=== PATIENT | male | born 1945 | race Caucasian/White ===

== ENCOUNTER 2017-08-09 17:00 | Inpatient (IN) | payer MEDICARE, OTHER ==
[~2017-08-09] VITALS: Ht 182.9 cm; Wt 85.6 kg
[2017-08-09 17:12] VITALS: BP 172/104; PULSE 100; RESP 16; TEMP 98.1; O2SAT 98
[2017-08-09 17:15] VITALS: BP 172/104; PULSE 95; RESP 16; O2SAT 98
--- NOTE | 2017-08-09 17:17 | PD ---
HPI Chief Complaint: ams Time Seen by Provider: 17:19 Travel History International Travel<30 days: No Contact w/Intl Traveler<30days: No Traveled to known affect area: No History of Present Illness HPI brought in by ems as an ex parte patient. 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 chart /rn notes reviewed unable to obtain pmhx /pshx from patient due to his level of confusion PFSH Social History Tobacco Use: No Allergies-Medications (Allergen,Severity, Reaction): Coded Allergies: No Known Allergies (Unverified , 08/09/17) Reported Meds & Prescriptions Reported Meds & Active Scripts Active Reported Metoprolol Tartrate 25 Mg Tab 25 Mg PO DAILY Lisinopril 5 Mg Tab 5 Mg PO DAILY Namenda (Memantine) 5 Mg Tab 5 Mg PO BID Zoloft (Sertraline HCl) 25 Mg Tab 25 Mg PO DAILY Review of Systems ROS Limitations: Altered Mental Status Physical Exam Exam Limitations: Altered Mental Status Narrative GENERAL: SKIN: Warm and dry. HEAD: Atraumatic. Normocephalic. EYES: Pupils equal and round. No scleral icterus. No injection or drainage. ENT: No nasal bleeding or discharge. Mucous membranes pink and moist. NECK: Trachea midline. No JVD. CARDIOVASCULAR: Regular rate and rhythm. RESPIRATORY: No accessory muscle use. Clear to auscultation. Breath sounds equal bilaterally. GASTROINTESTINAL: Abdomen soft, non-tender, nondistended. Hepatic and splenic margins not palpable. MUSCULOSKELETAL: Extremities without clubbing, cyanosis, or edema. No obvious deformities. NEUROLOGICAL: Awake and alert. confused and not answering answers at all, very circumnavigatory with his answers ... Motor grossly within normal limits. Five out of 5 muscle strength in the arms and legs. Normal speech. gcs 14/15 PSYCHIATRIC: Appropriate mood and affect; insight and judgment normal. Data Data Last Documented VS Vital Signs Date Time Temp Pulse Resp B/P (MAP) Pulse Ox O2 Delivery O2 Flow Rate FiO2 08/09/17 17:15 95 16 172/104 (126) 98 Room Air 08/09/17 17:12 98.1 Orders Orders Complete Blood Count With Diff (08/09/17 17:19) Basic Metabolic Panel (Bmp) (08/09/17 17:19) Troponin I (08/09/17 17:19) Prothrombin Time / Inr (Pt) (08/09/17 17:19) Act Partial Throm Time (Ptt) (08/09/17 17:19) Urinalysis - C+S If Indicated (08/09/17 17:19) Thyroid Stimulating Hormone (08/09/17 17:19) Ct Brain W/O Iv Contrast(Rout) (08/09/17 17:19) Drug Screen, Random Urine (08/09/17 17:19) Alcohol (Ethanol) (08/09/17 17:19) Salicylates (Aspirin) (08/09/17 17:19) Tylenol (Acetaminophen) (08/09/17 17:19) Diet Diabetic (08/09/17 Dinner) Labs Laboratory Tests Test 08/09/17 17:45 08/09/17 18:15 White Blood Count 6.0 TH/MM3 Red Blood Count 4.28 MIL/MM3 Hemoglobin 14.1 GM/DL Hematocrit 41.6 % Mean Corpuscular Volume 97.1 FL Mean Corpuscular Hemoglobin 32.9 PG Mean Corpuscular Hemoglobin Concent 33.9 % Red Cell Distribution Width 13.3 % Platelet Count 206 TH/MM3 Mean Platelet Volume 9.3 FL Neutrophils (%) (Auto) 71.3 % Lymphocytes (%) (Auto) 21.0 % Monocytes (%) (Auto) 6.6 % Eosinophils (%) (Auto) 0.7 % Basophils (%) (Auto) 0.4 % Neutrophils # (Auto) 4.3 TH/MM3 Lymphocytes # (Auto) 1.3 TH/MM3 Monocytes # (Auto) 0.4 TH/MM3 Eosinophils # (Auto) 0.0 TH/MM3 Basophils # (Auto) 0.0 TH/MM3 CBC Comment DIFF FINAL Differential Comment Prothrombin Time 11.0 SEC Prothromb Time International Ratio 1.0 RATIO Activated Partial Thromboplast Time 25.0 SEC Blood Urea Nitrogen 26 MG/DL Creatinine 1.38 MG/DL Random Glucose 144 MG/DL Calcium Level 8.7 MG/DL Sodium Level 141 MEQ/L Potassium Level 3.9 MEQ/L Chloride Level 108 MEQ/L Carbon Dioxide Level 25.5 MEQ/L Anion Gap 8 MEQ/L Estimat Glomerular Filtration Rate 51 ML/MIN Troponin I LESS THAN 0.02 NG/ML Thyroid Stimulating Hormone 3rd Gen 1.360 uIU/ML Salicylates Level LESS THAN 1.7 MG/DL Ethyl Alcohol Level LESS THAN 3 MG/DL Urine Color YELLOW Urine Turbidity CLEAR Urine pH 6.0 Urine Specific [place] 1.017 Urine Protein TRACE mg/dL Urine Glucose (UA) NEG mg/dL Urine Ketones NEG mg/dL Urine Occult Blood NEG Urine Nitrite NEG Urine Bilirubin NEG Urine Urobilinogen LESS THAN 2.0 MG/DL Urine Leukocyte Esterase NEG Urine RBC 1 /hpf Urine WBC LESS THAN 1 /hpf Urine Hyaline Casts 1 /lpf Microscopic Urinalysis Comment CULT NOT INDICATED MDM Medical Decision Making Medical Screen Exam Complete: Yes Emergency Medical Condition: Yes Medical Record Reviewed: Yes Differential Diagnosis ich v electrolyte abnl v dehydration/anemia v thyroid condition Narrative Course during evaluation patient found to not be anemic, no dehydration, normal electrolytes and tsh screen Diagnosis Primary Impression: avila act medically cleared Additional Impression: Mild renal insufficiency Jose Cho MD Aug 09, 2017 17:17
[2017-08-09] MEDS ORDERED: NAME5TAB2 PO (17:18)
[2017-08-09] MEDS ORDERED: LISI-519 PO (17:18)
[2017-08-09] MEDS ORDERED: METO25TA3 PO (17:18)
[2017-08-09] MEDS ORDERED: ZOLO25TA PO (17:18)
[2017-08-09 18:02] LABS: AUTOMATED NEUTROPHIL # 4.3 TH/MM3 (1.8-7.7); BASOPHIL % 0.4 % (0.0-2.0); EOSINOPHIL % 0.7 % (0.0-4.0); HEMATOCRIT 41.6 % (39.0-51.0); HEMO FLAGS DIFF FINAL; LYMPHOCYTE # 1.3 TH/MM3 (1.0-4.8); MEAN CELL VOLUME 97.1 FL (80.0-100.0); MEAN CORPUSCULAR HEMOGLOBIN 32.9 PG (27.0-34.0); MEAN CORPUSCULAR HGB CONC 33.9 % (32.0-36.0); MONO % 6.6 % (0.0-8.0); NEUT % 71.3 % (16.0-70.0); PLATELET COUNT 206 TH/MM3 (150-450); RED BLOOD COUNT 4.28 MIL/MM3 (4.50-5.90); RED CELL DISTRIBUTION WIDTH 13.3 % (11.6-17.2)
[2017-08-09 18:12] LABS: ANION GAP 8 MEQ/L (5-15); BICARBONATE 25.5 MEQ/L (21.0-32.0); BLOOD UREA NITROGEN 26 MG/DL (7-18); CHLORIDE 108 MEQ/L (98-107); GLOMERULAR FILTRATION RATE 51 ML/MIN (>89); POTASSIUM 3.9 MEQ/L (3.5-5.1); SODIUM (NA) 141 MEQ/L (136-145)
[2017-08-09 18:14] LABS: ALCOHOL LESS THAN 3 MG/DL (0-5)
--- NOTE | 2017-08-09 18:14 | RADRPT ---
EXAM DATE/TIME: 08/09/2017 17:47 [place] COMPARISON: No previous studies available for comparison. INDICATIONS : Altered mental status. RADIATION DOSE: 48.94 CTDIvol (mGy) MEDICAL HISTORY : Dementia. SURGICAL HISTORY : None. ENCOUNTER: Initial ACUITY: 1 day PAIN SCALE: 0/10 LOCATION: cranial TECHNIQUE: Multiple contiguous axial images were obtained of the head. Using automated exposure control and adj ustment of the mA and/or kV according to patient size, radiation dose was kept as low as reasonably a chievable to obtain optimal diagnostic quality images. DICOM format image data is available electro nically for review and comparison. FINDINGS: CEREBRUM: The ventricles, sulci, cisterns, and extra-axial spaces are prominent, characteristic of moderate sev erity central cortical atrophy. No evidence of midline shift, mass lesion, hemorrhage or acute infar ction. No extra-axial fluid collections are seen. POSTERIOR FOSSA: The cerebellum and brainstem are intact. The 4th ventricle is midline. The cerebellopontine angle i s unremarkable. EXTRACRANIAL: The visualized portion of the orbits is intact. SKULL: The calvaria is intact. No evidence of skull fracture. CONCLUSION: Moderate severity atrophy. No acute findings. Panchito Demarco MD on August 09, 2017 at 18:12 Board Certified Radiologist. This report was verified electronically.
[2017-08-09 18:33] LABS: BLOOD, URINE NEG (NEG); COMMENT (UR) CULT NOT INDICATED; CULTURE IF INDICATED CULT NOT INDICATED; GLUCOSE,URINE NEG (NEG); HYALINE CAST, URINE 1 /lpf (RARE); KETONE, URINE NEG (NEG); NITRITE,URINE NEG (NEG); URINE COLOR YELLOW (YELLW/STRAW)
[2017-08-09 18:50] LABS: ACETAMINOPHEN LESS THAN 2.0 MCG/ML (10.0-30.0)
[2017-08-09 19:34] VITALS: BP 150/87; PULSE 82; RESP 18; O2SAT 99
--- NOTE | 2017-08-09 22:39 | PD ---
History of Present Illness Chief Complaint: Psychiatric Symptoms Time Seen by Provider: 21:45 Travel History International Travel<30 Days: No Contact w/Intl Traveler<30days: No Known affected area: No Legal Status Legal Status: Ex Parte History of Present Illness: History of Present Illness HPI 72 year old , retired [employer] brought in by ems as an ex parte. The patient's petitioned the court due to increase in behaviors which are placing him in danger, is refusing to attend any medical appointments, has threatened her, opened the car door while she was driving and refused to get back in the car proceeding to walk 4 miles back to their home, and has taken her car keys and left their home driving his car. 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 History is obtained form his as the patient is unable to provide any history. She has POA. I spoke with his Kenton over the phone. She reports that he was diagnosed with dementia after a hospitalization in January of this year. He became increasingly confused and did not know who she was. He was admitted to [facility] in January and received complete workup and medications were started at that time. Upon discharge from [facility] she attempted to have him admitted to [facility] but he was not accepted because " he was able to follow instructions". he was placed in their [facility] but was discharged after 24 hours after he demanded to go home. She reports he is increasingly confused, agitated at times, believes people are stealing things from his shed, and has been running away from her and leaving the home. She is unable to care for him and feels it would be unsafe if he were discharged. The patient is alert. He is oriented to name only. he believes he is in [place] and is awaiting for his father to come and meet him. He is unable to tell me that the room he is in is a hospital room. He does tell me that he has observed people taking things and moving things here. he has problems with word findings. When asked what day it is he looks at his watch and states " it 's almost ten o'clock". When asked the year he states " it's almost ten o' clock". He denies suicidal ideation. PFSH Past Medical History Medical History: Unable to Obtain Dementia: Yes Influenza Vaccination: No Past Surgical History Surgical History: Unable to Obtain Psychiatric History Psychiatric History Hx Psychiatric Treatment: one admission to [facility] in January of 2017 under a avila act. 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 Hx Alcohol Use: No Hx Tobacco Use: No Hx Substance Use: No Hx of Substance Use Treatment: No Family Psychiatric History Unknown Allergies-Medications (Allergen,Severity, Reaction): Coded Allergies: No Known Allergies (Unverified , 08/09/17) Reported Meds & Prescriptions Reported Meds & Active Scripts Active Reported Metoprolol Tartrate 25 Mg Tab 25 Mg PO DAILY Lisinopril 5 Mg Tab 5 Mg PO DAILY Namenda (Memantine) 5 Mg Tab 5 Mg PO BID Zoloft (Sertraline HCl) 25 Mg Tab 25 Mg PO DAILY Review of Systems ROS Limitations: Poor Historian Mental Status Examination Appearance: Appropriate Consciousness: Alert Orientation: Person (to person only) Motor Activity: Normal gait Speech: Other (difficulty with word finding) Language: Other (diminished capacity ) Fund of Knowledge: Poor Attention and Concentration: Easily Distracted Memory: Impaired Mood: Appropriate Affect: Appropriate Thought Process & Associations: Other Thought Content: Hallucinations (sees people who are trying to steal his things ) Hallucination Type: Visual Delusion Type: None Suicidal Ideation: No Suicidal Plan: No Suicidal Intention: No Homicidal Ideation: No Homicidal Plan: No Homicidal Intention: No Insight: Poor Judgment: Poor [facility] Medical Decision Making Medical Record Reviewed: Yes Assessment/Plan 72 year old , retired [employer] brought in by ems as an ex parte. The patient's petitioned the court due to increase in behaviors which are placing him in danger, is refusing to attend any medical appointments, has threatened her, opened the car door while she was driving and refused to get back in the car proceeding to walk 4 miles back to their home, and has taken her car keys and left their home driving his car. 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 The patient is presenting increase i behaviors associated with dementia which place him at risk. he has also become threatening towards his whom he no longer remembers. The patient will be admitted for medication adjustment, stabilization and to maintain his safety. Orders Orders Complete Blood Count With Diff (08/09/17 17:19) Basic Metabolic Panel (Bmp) (08/09/17 17:19) Troponin I (08/09/17 17:19) Prothrombin Time / Inr (Pt) (08/09/17 17:19) Act Partial Throm Time (Ptt) (08/09/17 17:19) Urinalysis - C+S If Indicated (08/09/17 17:19) Thyroid Stimulating Hormone (08/09/17 17:19) Ct Brain W/O Iv Contrast(Rout) (08/09/17 17:19) Drug Screen, Random Urine (08/09/17 17:19) Alcohol (Ethanol) (08/09/17 17:19) Salicylates (Aspirin) (08/09/17 17:19) Tylenol (Acetaminophen) (08/09/17 17:19) Diet Diabetic (08/09/17 Dinner) Psych Screen (08/09/17 21:29) Results Vital Signs Date Time Temp Pulse Resp B/P (MAP) Pulse Ox O2 Delivery O2 Flow Rate FiO2 08/09/17 17:15 95 16 172/104 (126) 98 Room Air 08/09/17 17:12 98.1 100 16 172/104 (126) 98 Laboratory Tests Test 08/09/17 17:45 08/09/17 18:15 White Blood Count 6.0 Red Blood Count 4.28 Hemoglobin 14.1 Hematocrit 41.6 Mean Corpuscular Volume 97.1 Mean Corpuscular Hemoglobin 32.9 Mean Corpuscular Hemoglobin Concent 33.9 Red Cell Distribution Width 13.3 Platelet Count 206 Mean Platelet Volume 9.3 Neutrophils (%) (Auto) 71.3 Lymphocytes (%) (Auto) 21.0 Monocytes (%) (Auto) 6.6 Eosinophils (%) (Auto) 0.7 Basophils (%) (Auto) 0.4 Neutrophils # (Auto) 4.3 Lymphocytes # (Auto) 1.3 Monocytes # (Auto) 0.4 Eosinophils # (Auto) 0.0 Basophils # (Auto) 0.0 CBC Comment DIFF FINAL Differential Comment Prothrombin Time 11.0 Prothromb Time International Ratio 1.0 Activated Partial Thromboplast Time 25.0 Blood Urea Nitrogen 26 Creatinine 1.38 Random Glucose 144 Calcium Level 8.7 Sodium Level 141 Potassium Level 3.9 Chloride Level 108 Carbon Dioxide Level 25.5 Anion Gap 8 Estimat Glomerular Filtration Rate 51 Troponin I LESS THAN 0.02 Thyroid Stimulating Hormone 3rd Gen 1.360 Salicylates Level LESS THAN 1.7 Acetaminophen Level LESS THAN 2.0 Ethyl Alcohol Level LESS THAN 3 Urine Color YELLOW Urine Turbidity CLEAR Urine pH 6.0 Urine Specific [place] 1.017 Urine Protein TRACE Urine Glucose (UA) NEG Urine Ketones NEG Urine Occult Blood NEG Urine Nitrite NEG Urine Bilirubin NEG Urine Urobilinogen LESS THAN 2.0 Urine Leukocyte Esterase NEG Urine RBC 1 Urine WBC LESS THAN 1 Urine Hyaline Casts 1 Microscopic Urinalysis Comment CULT NOT INDICATED Diagnosis Primary Impression: Dementia with behavioral disturbance Admitting Information Admitting Physician Requests: Admit Problem Qualifiers Primary Impression: Dementia with behavioral disturbance Qualified Codes: G30.1 - Alzheimer's disease with late onset; F02.81 - Dementia in other diseases classified elsewhere with behavioral disturbance Janie Back [facility] Aug 09, 2017 22:39
[2017-08-09] MEDS ORDERED: ALUMINUM/MAGNESIUM/SIMETH 30 ML CUP PO PRN (23:00)
[2017-08-09] MEDS ORDERED: ACETAMINOPHEN 325 MG TAB PO PRN (23:00)
[2017-08-09] MEDS ORDERED: MAGNESIUM HYDROXIDE SUSP 30 ML CUP PO PRN (23:00)
[2017-08-10 00:16] VITALS: BP 159/97; PULSE 96; RESP 18; O2SAT 98
[2017-08-10 00:40] VITALS: BP 193/122; PULSE 90; RESP 18; TEMP 98.2; O2SAT 97
[2017-08-10 01:15] VITALS: BP 144/108
[2017-08-10 06:43] VITALS: BP 160/106; PULSE 80; RESP 18; TEMP 97.8; O2SAT 97
[2017-08-10] MEDS ORDERED: NICOTINE 21 MG/24 HR PATCH T-DERMAL SCH (09:00)
[2017-08-10 10:28] VITALS: BP 176/94; PULSE 61
[2017-08-10 12:00] LABS: ANION GAP 10 MEQ/L (5-15); BICARBONATE 24.1 MEQ/L (21.0-32.0); BLOOD UREA NITROGEN 22 MG/DL (7-18); CHLORIDE 106 MEQ/L (98-107); GLOMERULAR FILTRATION RATE 56 ML/MIN (>89); POTASSIUM 3.9 MEQ/L (3.5-5.1); SODIUM (NA) 140 MEQ/L (136-145)
[2017-08-10 12:25] LABS: HDL CHOLESTEROL 72.3 MG/DL (40.0-60.0); LDL CHOLESTEROL 148 MG/DL (0-99)
--- NOTE | 2017-08-10 13:29 | HHI.HP ---
Provisional Diagnosis Admission Date Aug 09, 2017 at 23:00 [place] I. Alzheimer's disease with late onset g 30.1, dementia and other diseases with behavioral disturbance f 02.81 Certification of Person's Competence To Provide Express and Informed Consent I have personally examined Be Vega , a person being served at [facility] on, Aug 10, 2017 13:13. Express and informed consent means consent voluntarily given in writing, by a competent person, after sufficient explanation and disclosure of the subject matter involved to enable the person to make a knowing and willful decision without any element of force, fraud, deceit, duress, or other form of constraint or coercion. This person is 18 years of age or older, is not now known to be incompetent to consent to treatment with a guardian advocate, and does not have a health care surrogate or proxy currently making medical treatment decisions. I have found this person to be one of the following: [] Competent to provide express and informed consent, as defined above, for voluntary admission to this facility and is competent to provide express and informed consent for treatment. He/she has the consistent capacity to make well reasoned, willful, and knowing decisions concerning his or her medical or mental health treatment. The person fully and consistently understands the purpose of the admission for examination/placement and is fully capable of personally exercising all rights [place]xxx] Incompetent to provide express and informed consent to voluntary admission , and this is incompetent to provide express and informed consent to treatment. The person must be transferred to involuntary status and a petition for a guardian advocate filed with the Circuit Court. [] Refusing to provide express and informed consent to voluntary admission but is competent to provide express and informed consent for treatment. The person must be discharged or transferred to involuntary status. Form shall be completed within 24 hours of a person's arrival at the receiving facility and filed in the clinical record of each person: 1. Admitted on a voluntary basis 2. Permitted to provide express and informed consent to his/her own treatment 3. Allowed to transfer from involuntary to voluntary status 4. Prior to permitting a person to consent to his or her own treatment after having been previously found incompetent to consent to treatment. History of Present Illness Capacity: Lacks Capacity Psych Chief Complaint: patient demented, was stopping traffic attempting to write traffic tickets HPI Patient is a 72-year-old white male who comes here under an ex parte signed by Judge Anika Doran dated 09 August 2017 follow-up by his . She give a history of her having dementia. That he was [facility]. He is a state them becoming somewhat more aggressive. Taking the family car. Stopping traffic attempting to give tickets to laundry route driver's. Patient seen screen in our ED and toxicology negative bladder: Negative. At the present time patient sitting quietly in his room nurse Cherie present throughout session patient is a tall alert clean and neat white male appears somewhat younger than stated age blond hair close brush cut. He is alert oriented only to his name. He showing marked confusion disorganization almost to the point of word salad. He is unable to remember any of the events leading to the ex parte. There does denies suicidality. Homicidality. Voices or visions. Is quite vague showing memory issues also related to his relationship with his . At the present time patient does meet criteria for inpatient psychiatric hospitalization of the Nath act I will do first opinion request second opinion. I also feel he does not have capacity thus I'll ask for healthcare surrogate and a guardian advocate. Have counseled call patient's to arrange for a family meeting tomorrow around lunchtime. We need to discuss medications diagnosis and possible placement issues it appears that attempted to place him in a voluntary LONGTERM though less than a very brief time only Review of Systems Constitutional: DENIES: Diaphoretic episodes, Fatigue, Fever, Weight gain, Weight loss, Chills, Dizziness, Change in appetite, Night Sweats Endocrine: DENIES: Heat/cold intolerance, Polydipsia, Polyuria, Polyphagia Eyes: DENIES: Blurred vision, Diplopia, Eye inflammation, Eye pain, Vision loss , Photosensitivity, Double Vision Ears, nose, mouth, throat: DENIES: Tinnitus, Hearing loss, Vertigo, Nasal discharge, Oral lesions, Throat pain, Hoarseness, Ear Pain, Running Nose, Epistaxis, Sinus Pain, Toothache, Odynophagia Respiratory: DENIES: Apneas, Cough, Snoring, Wheezing, Hemoptysis, Sputum production, Shortness of breath Cardiovascular: DENIES: Chest pain, Palpitations, Syncope, Dyspnea on Exertion , PND, Lower Extremity Edema, Orthopnea, Claudication Gastrointestinal: DENIES: Abdominal pain, Black stools, Bloody stools, Constipation, Diarrhea, Nausea, Vomiting, Difficulty Swallowing, Anorexia Genitourinary: DENIES: Sexual dysfunction, Urinary frequency, Urinary incontinence, Urgency, Hematuria, Dysuria, Nocturia, Penile Discharge, Testicular Pain, Testicular Swelling Musculoskeletal: DENIES: Joint pain, Muscle aches, Stiffness, Joint Swelling, Back pain, Neck pain Integumentary: DENIES: Abnormal pigmentation, Nail changes, Pruritus, Rash Hematologic/lymphatic: DENIES: Bruising, Lymphadenopathy Immunologic/allergic: DENIES: Eczema, Urticaria Neurologic: DENIES: Abnormal gait, Headache, Localized weakness, Paresthesias, Seizures, Speech Problems, Tremor, Poor Balance Psychiatric: DENIES: Anxiety, Confusion, Mood changes, Depression, Hallucinations, Agitation, Suicidal Ideation, Homicidal Ideation, Delusions Past Psych History Psychological trauma history Unknown due to cognitive deficit Violence risk - others (6 mos) Unknown due to cognitive deficit Violence risk - self (6 mos) Unknown due to cognitive deficit the patient denies suicidality Substance Abuse History Drugs/Alcohol past 12 months Unknown due to cognitive deficit Past Family Social History Coded Allergies: No Known Allergies (Unverified , 08/09/17) Past Medical History History of dementia Reported Medications Metoprolol Tartrate (Metoprolol Tartrate) 25 Mg Tab, 25 MG PO DAILY, #30 TAB 0 Refills 08/09/17 Lisinopril (Lisinopril) 5 Mg Tab, 5 MG PO DAILY for Blood Pressure Management, # 30 TAB 0 Refills 08/09/17 Memantine (Namenda) 5 Mg Tab, 5 MG PO BID for Alzheimer Disease, #60 TAB 0 Refills 08/09/17 Sertraline (Zoloft) 25 Mg Tab, 25 MG PO DAILY, #30 TAB 0 Refills 08/09/17 Current Medications Medications (Trade) Dose Ordered Sig/Chris Route Start Time Stop Time Status Last Admin (Tylenol) 650 mg Q4H PRN PO 08/09/17 23:00 (Milk Of Magnesia Liq) 30 ml DAILY PRN PO 08/09/17 23:00 (Mag-Al Plus Susp Liq) 30 ml Q6H PRN PO 08/09/17 23:00 (Habitrol 21 Mg Patch.24 Hr) 1 patch DAILY T-DERMAL 08/10/17 09:00 Family Psych History Unknown due to cognitive deficit Social History Patient lives with Patient's Strengths (min. 2) Patient able axis healthcare has family support Physical Exam Patient seen screened in ED exam reviewed and agreed with. Patient sitting quietly in his room is in no acute distress, patient no respiratory distress. No complaints of abdominal pain. Patient moving all 4 extremities without difficulty. No abnormal motor movements noted. Vital Signs Vital Signs Date Time Temp Pulse Resp B/P (MAP) Pulse Ox O2 Delivery O2 Flow Rate FiO2 08/10/17 10:28 61 176/94 (121) 08/10/17 06:43 97.8 18 97 08/10/17 00:16 Room Air Lab Results Test 08/09/17 17:45 08/09/17 18:15 08/10/17 10:05 White Blood Count 6.0 TH/MM3 Red Blood Count 4.28 MIL/MM3 Hemoglobin 14.1 GM/DL Hematocrit 41.6 % Mean Corpuscular Volume 97.1 FL Mean Corpuscular Hemoglobin 32.9 PG Mean Corpuscular Hemoglobin Concent 33.9 % Red Cell Distribution Width 13.3 % Platelet Count 206 TH/MM3 Mean Platelet Volume 9.3 FL Neutrophils (%) (Auto) 71.3 % Lymphocytes (%) (Auto) 21.0 % Monocytes (%) (Auto) 6.6 % Eosinophils (%) (Auto) 0.7 % Basophils (%) (Auto) 0.4 % Neutrophils # (Auto) 4.3 TH/MM3 Lymphocytes # (Auto) 1.3 TH/MM3 Monocytes # (Auto) 0.4 TH/MM3 Eosinophils # (Auto) 0.0 TH/MM3 Basophils # (Auto) 0.0 TH/MM3 CBC Comment DIFF FINAL Differential Comment Prothrombin Time 11.0 SEC Prothromb Time International Ratio 1.0 RATIO Activated Partial Thromboplast Time 25.0 SEC Blood Urea Nitrogen 26 MG/DL 22 MG/DL Creatinine 1.38 MG/DL 1.27 MG/DL Random Glucose 144 MG/DL 107 MG/DL Calcium Level 8.7 MG/DL 9.3 MG/DL Sodium Level 141 MEQ/L 140 MEQ/L Potassium Level 3.9 MEQ/L 3.9 MEQ/L Chloride Level 108 MEQ/L 106 MEQ/L Carbon Dioxide Level 25.5 MEQ/L 24.1 MEQ/L Anion Gap 8 MEQ/L 10 MEQ/L Estimat Glomerular Filtration Rate 51 ML/MIN 56 ML/MIN Troponin I LESS THAN 0.02 NG/ML Thyroid Stimulating Hormone 3rd Gen 1.360 uIU/ML Salicylates Level LESS THAN 1.7 MG/DL Acetaminophen Level LESS THAN 2.0 MCG/ML Ethyl Alcohol Level LESS THAN 3 MG/DL Urine Color YELLOW Urine Turbidity CLEAR Urine pH 6.0 Urine Specific [place] 1.017 Urine Protein TRACE mg/dL Urine Glucose (UA) NEG mg/dL Urine Ketones NEG mg/dL Urine Occult Blood NEG Urine Nitrite NEG Urine Bilirubin NEG Urine Urobilinogen LESS THAN 2.0 MG/DL Urine Leukocyte Esterase NEG Urine RBC 1 /hpf Urine WBC LESS THAN 1 /hpf Urine Hyaline Casts 1 /lpf Microscopic Urinalysis Comment CULT NOT INDICATED Urine Opiates Screen NEG Urine Barbiturates Screen NEG Urine Amphetamines Screen NEG Urine Benzodiazepines Screen NEG Urine Cocaine Screen NEG Urine Cannabinoids Screen NEG Triglycerides Level 73 MG/DL Cholesterol Level 235 MG/DL LDL Cholesterol 148 MG/DL HDL Cholesterol 72.3 MG/DL Cholesterol/HDL Ratio 3.25 RATIO Vitamin B12 Level 379 PG/ML 25-Hydroxy Vitamin D Total 36.0 ng/ML Mental Status Examination Appearance: Appropriate Consciousness: Alert Orientation: Person (to person only) Motor Activity: Normal gait Speech: Other (difficulty with word finding) Language: Other (diminished capacity ) Fund of Knowledge: Poor Attention and Concentration: Easily Distracted Memory: Impaired Mood: Other (euthymic to mildly restricted) Affect: Other (decreased range and intensity) Thought Process & Associations: Loose associations, Disorganized Thought Content: Hallucinations (sees people who are trying to steal his things ) Hallucination Type: Visual Delusion Type: None Suicidal Ideation: No Suicidal Plan: No Suicidal Intention: No Homicidal Ideation: No Homicidal Plan: No Homicidal Intention: No Insight: Poor Judgment: Poor Assessment & Plan Problem List: (1) ALZHEIMER'S DISEASE WITH LATE ONSET ICD Codes: G30.1 - ALZHEIMER'S DISEASE WITH LATE ONSET (2) DEMENTIA IN OTH DISEASES CLASSD ELSWHR W BEHAVIORAL DISTURB ICD Codes: F02.81 - DEMENTIA IN OTH DISEASES CLASSD ELSWHR W BEHAVIORAL DISTURB Assessment & Plan Estimated LOS: days patient meets criteria for involuntary psychiatric hospitalization on the Nath act I'll do first opinion request second opinion I feel he does not have capacity as for healthcare surrogate and guardian advocate. Attempted reach patient's sees him because tomorrow around lunchtime to discuss further treatment medications and placement issues Discharge Planning To be determined Request HC Surrog/Guard Advoc?: Yes Idris Michel MD Aug 10, 2017 13:29
[2017-08-10] MEDS ORDERED: hydrOXYzine HCL 50 MG TAB PO PRN (15:00)
[2017-08-10] MEDS ORDERED: PILL SPLITTER OTHER PRN (15:00)
--- NOTE | 2017-08-10 15:15 | EKG ---
Date Performed: 08/10/2017 Time Performed: 09:08:06 PTAGE: 72 years EKG: ATRIAL FIBRILLATION WITH RAPID VENTRICULAR RESPONSE WITH ABERRANT CONDUCTION OR VENTRICULAR PREMATURE COMPLEXES LEFT ANTERIOR FASCICULAR BLOCK VOLTAGE CRITERIA FOR LVH NONSPECIFIC ST & T-WAVE ABNORMALITY ABNORMAL ECG NO PREVIOUS TRACING DOCTOR: Alvaro Walker Interpretating Date/Time 08/10/2017 15:13:27
--- NOTE | 2017-08-10 15:18 | PD.PSY.CON ---
Provisional Diagnosis Admission Date Aug 09, 2017 at 23:00 [place] I. Alzheimer's disease with late onset g 30.1, dementia and other diseases with behavioral disturbance f 02.81 History of Present Illness Service Psychiatry Consult Requested By Psychiatry Reason for Consult second opinion Primary Care Physician No Primary Care Physician HPI Patient is a 72-year-old white male who comes here under an ex parte signed by Judge Anika Doran dated 09 August 2017 follow-up by his . She give a history of her having dementia. That he was [facility]. He is a state them becoming somewhat more aggressive. Taking the family car. Stopping traffic attempting to give tickets to wrecker driver's. Patient seen screen in our ED and toxicology negative bladder: Negative. At the present time patient sitting quietly in his room nurse Cherie present throughout session patient is a tall alert clean and neat white male appears somewhat younger than stated age blond hair close brush cut. He is alert oriented only to his name. He showing marked confusion disorganization almost to the point of word salad. He is unable to remember any of the events leading to the ex parte. There does denies suicidality. Homicidality. Voices or visions. Is quite vague showing memory issues also related to his relationship with his . At the present time patient does meet criteria for inpatient psychiatric hospitalization of the Nath act I will do first opinion request second opinion. I also feel he does not have capacity thus I'll ask for healthcare surrogate and a guardian advocate. Have counseled call patient's to arrange for a family meeting tomorrow around lunchtime. We need to discuss medications diagnosis and possible placement issues it appears that attempted to place him in a voluntary SENIOR LIVING though less than a very brief time only Patient was seen today for psychiatric evaluation and at second opinion. Was found the recreational area of the unit. Calm, cooperative and pleasant. Pleasantly demented. Patient says that he has been watching through the windows the cars in the parking lot, he says that all those cars were brought here by his sister. He reports good mood, nice suicidal and homicidal ideation , he denies visual and auditory hallucinations. At the moment of this evaluation no agitation, no paranoia, no florid psychosis, aggressive behavior reported. Past Family Social History Coded Allergies: No Known Allergies (Unverified , 08/09/17) Reported Medications Metoprolol Tartrate (Metoprolol Tartrate) 25 Mg Tab, 25 MG PO DAILY, #30 TAB 0 Refills 08/09/17 Lisinopril (Lisinopril) 5 Mg Tab, 5 MG PO DAILY for Blood Pressure Management, # 30 TAB 0 Refills 08/09/17 Memantine (Namenda) 5 Mg Tab, 5 MG PO BID for Alzheimer Disease, #60 TAB 0 Refills 08/09/17 Sertraline (Zoloft) 25 Mg Tab, 25 MG PO DAILY, #30 TAB 0 Refills 08/09/17 Current Medications Medications (Trade) Dose Ordered Sig/Chris Route Start Time Stop Time Status Last Admin (Tylenol) 650 mg Q4H PRN PO 08/09/17 23:00 (Milk Of Magnesia Liq) 30 ml DAILY PRN PO 08/09/17 23:00 (Mag-Al Plus Susp Liq) 30 ml Q6H PRN PO 08/09/17 23:00 (Atarax) 50 mg Q6H PRN PO 08/10/17 15:00 (Prinivil) 5 mg DAILY PO 08/11/17 09:00 (Namenda) 5 mg BID PO 08/10/17 21:00 (Lopressor) 25 mg DAILY PO 08/11/17 09:00 (Zoloft) 25 mg DAILY PO 08/11/17 09:00 (Pill Splitter) 1 ea UNSCH PRN OTHER 08/10/17 15:00 Patient's Strengths (min. 2) Patient able axis healthcare has family support Physical Exam Vital Signs Vital Signs Date Time Temp Pulse Resp B/P (MAP) Pulse Ox O2 Delivery O2 Flow Rate FiO2 08/10/17 10:28 61 176/94 (121) 08/10/17 06:43 97.8 18 97 08/10/17 00:16 Room Air Lab Results Test 08/09/17 17:45 08/09/17 18:15 08/10/17 10:05 White Blood Count 6.0 TH/MM3 Red Blood Count 4.28 MIL/MM3 Hemoglobin 14.1 GM/DL Hematocrit 41.6 % Mean Corpuscular Volume 97.1 FL Mean Corpuscular Hemoglobin 32.9 PG Mean Corpuscular Hemoglobin Concent 33.9 % Red Cell Distribution Width 13.3 % Platelet Count 206 TH/MM3 Mean Platelet Volume 9.3 FL Neutrophils (%) (Auto) 71.3 % Lymphocytes (%) (Auto) 21.0 % Monocytes (%) (Auto) 6.6 % Eosinophils (%) (Auto) 0.7 % Basophils (%) (Auto) 0.4 % Neutrophils # (Auto) 4.3 TH/MM3 Lymphocytes # (Auto) 1.3 TH/MM3 Monocytes # (Auto) 0.4 TH/MM3 Eosinophils # (Auto) 0.0 TH/MM3 Basophils # (Auto) 0.0 TH/MM3 CBC Comment DIFF FINAL Differential Comment Prothrombin Time 11.0 SEC Prothromb Time International Ratio 1.0 RATIO Activated Partial Thromboplast Time 25.0 SEC Blood Urea Nitrogen 26 MG/DL 22 MG/DL Creatinine 1.38 MG/DL 1.27 MG/DL Random Glucose 144 MG/DL 107 MG/DL Calcium Level 8.7 MG/DL 9.3 MG/DL Sodium Level 141 MEQ/L 140 MEQ/L Potassium Level 3.9 MEQ/L 3.9 MEQ/L Chloride Level 108 MEQ/L 106 MEQ/L Carbon Dioxide Level 25.5 MEQ/L 24.1 MEQ/L Anion Gap 8 MEQ/L 10 MEQ/L Estimat Glomerular Filtration Rate 51 ML/MIN 56 ML/MIN Troponin I LESS THAN 0.02 NG/ML Thyroid Stimulating Hormone 3rd Gen 1.360 uIU/ML Salicylates Level LESS THAN 1.7 MG/DL Acetaminophen Level LESS THAN 2.0 MCG/ML Ethyl Alcohol Level LESS THAN 3 MG/DL Urine Color YELLOW Urine Turbidity CLEAR Urine pH 6.0 Urine Specific [place] 1.017 Urine Protein TRACE mg/dL Urine Glucose (UA) NEG mg/dL Urine Ketones NEG mg/dL Urine Occult Blood NEG Urine Nitrite NEG Urine Bilirubin NEG Urine Urobilinogen LESS THAN 2.0 MG/DL Urine Leukocyte Esterase NEG Urine RBC 1 /hpf Urine WBC LESS THAN 1 /hpf Urine Hyaline Casts 1 /lpf Microscopic Urinalysis Comment CULT NOT INDICATED Urine Opiates Screen NEG Urine Barbiturates Screen NEG Urine Amphetamines Screen NEG Urine Benzodiazepines Screen NEG Urine Cocaine Screen NEG Urine Cannabinoids Screen NEG Triglycerides Level 73 MG/DL Cholesterol Level 235 MG/DL LDL Cholesterol 148 MG/DL HDL Cholesterol 72.3 MG/DL Cholesterol/HDL Ratio 3.25 RATIO Vitamin B12 Level 379 PG/ML 25-Hydroxy Vitamin D Total 36.0 ng/ML Mental Status Examination Appearance: Appropriate Consciousness: Alert Orientation: Person (to person only) Motor Activity: Normal gait Speech: Other (difficulty with word finding) Language: Other (diminished capacity ) Fund of Knowledge: Poor Attention and Concentration: Easily Distracted Memory: Impaired Mood: Other (euthymic to mildly restricted) Affect: Other (decreased range and intensity) Thought Process & Associations: Loose associations, Disorganized Thought Content: Hallucinations (sees people who are trying to steal his things ) Hallucination Type: Visual Delusion Type: None Suicidal Ideation: No Suicidal Plan: No Suicidal Intention: No Homicidal Ideation: No Homicidal Plan: No Homicidal Intention: No Insight: Poor Judgment: Poor Assessment & Plan Problem List: (1) ALZHEIMER'S DISEASE WITH LATE ONSET ICD Codes: G30.1 - ALZHEIMER'S DISEASE WITH LATE ONSET (2) DEMENTIA IN OTH DISEASES CLASSD ELSWHR W BEHAVIORAL DISTURB ICD Codes: F02.81 - DEMENTIA IN OTH DISEASES CLASSD ELSWHR W BEHAVIORAL DISTURB Assessment & Plan: I have seen and examined this patient, reviewed the documentation, I agree and concur with Anand's assessment and plan. Assessment & Plan Estimated LOS: days Request HC Surrog/Guard Advoc?: Yes Sebastian Mccormack MD Aug 10, 2017 15:18
[2017-08-10 16:19] LABS: HEMOGLOBIN A1a 0.9 %; HEMOGLOBIN A1b 1.5 %; HEMOGLOBIN Ao 85.6 %; HEMOGLOBIN LA1C 2.3 %; HEMOGLOBIN P3 5.2 %
--- NOTE | 2017-08-10 16:23 | PD.CONS ---
[facility] Consult Requested By Dr. Michel, psychiatry team Reason for Consult Assist with medical management - HTN Primary Care Physician No Primary Care Physician Diagnoses: History of Present Illness Written by Dottie Hercules, acting as scribe for Dr. Andrew on 08/10/17 at 16:23. Patient is a 72-year-old male with primary medical history of HTN, dementia who came into the hospital ex parte by , per review of records, patient allegedly stopping traffic in writing tickets to the drivers. He is now admitted to inpatient psychiatry unit for further evaluation. Consulted for medical management. Patient seen and examined today pacing in the hallway. Patient verbalizes's name, unable to tell the date, time, place where he is at. He day for its from 1 sentence to the other without any cohesive thoughts. Able to follow commands. As per nursing, patient is being taken cared of by his and the placed him voluntarily in a facility where in he tried to go home and get out. When his was picking him up and was driving him home the patient got out of the car because he does not recognize his and he started pulling people over issuing traffic tickets. Denies pain and discomfort. Denies SOB/ dyspnea. Denies chest pain, palpitations, headaches, dizziness. Review of Systems ROS Limitations: Altered Mental Status, Poor Historian Past Family Social History Allergies: Coded Allergies: No Known Allergies (Unverified , 08/09/17) Past Medical History Dementia HTN Past Surgical History None according to patient Reported Medications Reported Meds & Active Scripts Active Reported Metoprolol Tartrate 25 Mg Tab 25 Mg PO DAILY Lisinopril 5 Mg Tab 5 Mg PO DAILY Namenda (Memantine) 5 Mg Tab 5 Mg PO BID Zoloft (Sertraline HCl) 25 Mg Tab 25 Mg PO DAILY Active Ordered Medications Current Medications Medications (Trade) Dose Ordered Sig/Chris Route Start Time Stop Time Status Last Admin (Tylenol) 650 mg Q4H PRN PO 08/09/17 23:00 (Milk Of Magnesia Liq) 30 ml DAILY PRN PO 08/09/17 23:00 (Mag-Al Plus Susp Liq) 30 ml Q6H PRN PO 08/09/17 23:00 (Atarax) 50 mg Q6H PRN PO 08/10/17 15:00 (Prinivil) 5 mg DAILY PO 08/11/17 09:00 (Namenda) 5 mg BID PO 08/10/17 21:00 (Lopressor) 25 mg DAILY PO 08/11/17 09:00 (Zoloft) 25 mg DAILY PO 08/11/17 09:00 (Pill Splitter) 1 ea UNSCH PRN OTHER 08/10/17 15:00 Family History Unable to obtain. 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 Denies alcohol use Denies tobacco use Denies illicit drug use Physical Exam Vital Signs Vital Signs Date Time Temp Pulse Resp B/P (MAP) Pulse Ox O2 Delivery O2 Flow Rate FiO2 08/10/17 10:28 61 176/94 (121) 08/10/17 06:43 97.8 80 18 160/106 (124) 97 08/10/17 01:15 144/108 (120) 08/10/17 00:40 98.2 90 18 193/122 (145) 97 08/10/17 00:16 96 18 159/97 (117) 98 Room Air 08/09/17 19:34 82 18 150/87 (108) 99 Room Air 08/09/17 17:15 95 16 172/104 (126) 98 Room Air 08/09/17 17:12 98.1 100 16 172/104 (126) 98 Physical Exam GENERAL: This is a well-nourished, well-developed patient, in no apparent distress. SKIN: Warm and dry. HEAD: Normocephalic. EYES: Pupils equal round and reactive. Extraocular motions intact. No scleral icterus. No injection or drainage. ENT: Nose without bleeding. Throat without erythema. Uvula midline. Airway patent. NECK: Trachea midline. CARDIOVASCULAR: Regular rate and rhythm without murmurs, gallops, or rubs. RESPIRATORY: Clear to auscultation. Breath sounds equal bilaterally. No wheezes , rales, or rhonchi. GASTROINTESTINAL: Abdomen soft, non-tender, nondistended.BS Active x4. No guarding. MUSCULOSKELETAL: Extremities without clubbing, cyanosis, or edema. NEUROLOGICAL: Awake and alert. Confuse. Oriented to self. Speech is clear. Unorganized thoughts. Laboratory Laboratory Tests Test 08/09/17 17:45 08/09/17 18:15 08/10/17 10:05 White Blood Count 6.0 Red Blood Count 4.28 Hemoglobin 14.1 Hematocrit 41.6 Mean Corpuscular Volume 97.1 Mean Corpuscular Hemoglobin 32.9 Mean Corpuscular Hemoglobin Concent 33.9 Red Cell Distribution Width 13.3 Platelet Count 206 Mean Platelet Volume 9.3 Neutrophils (%) (Auto) 71.3 Lymphocytes (%) (Auto) 21.0 Monocytes (%) (Auto) 6.6 Eosinophils (%) (Auto) 0.7 Basophils (%) (Auto) 0.4 Neutrophils # (Auto) 4.3 Lymphocytes # (Auto) 1.3 Monocytes # (Auto) 0.4 Eosinophils # (Auto) 0.0 Basophils # (Auto) 0.0 CBC Comment DIFF FINAL Differential Comment Prothrombin Time 11.0 Prothromb Time International Ratio 1.0 Activated Partial Thromboplast Time 25.0 Blood Urea Nitrogen 26 22 Creatinine 1.38 1.27 Random Glucose 144 107 Calcium Level 8.7 9.3 Sodium Level 141 140 Potassium Level 3.9 3.9 Chloride Level 108 106 Carbon Dioxide Level 25.5 24.1 Anion Gap 8 10 Estimat Glomerular Filtration Rate 51 56 Troponin I LESS THAN 0.02 Thyroid Stimulating Hormone 3rd Gen 1.360 Salicylates Level LESS THAN 1.7 Acetaminophen Level LESS THAN 2.0 Ethyl Alcohol Level LESS THAN 3 Urine Color YELLOW Urine Turbidity CLEAR Urine pH 6.0 Urine Specific [place] 1.017 Urine Protein TRACE Urine Glucose (UA) NEG Urine Ketones NEG Urine Occult Blood NEG Urine Nitrite NEG Urine Bilirubin NEG Urine Urobilinogen LESS THAN 2.0 Urine Leukocyte Esterase NEG Urine RBC 1 Urine WBC LESS THAN 1 Urine Hyaline Casts 1 Microscopic Urinalysis Comment CULT NOT INDICATED Urine Opiates Screen NEG Urine Barbiturates Screen NEG Urine Amphetamines Screen NEG Urine Benzodiazepines Screen NEG Urine Cocaine Screen NEG Urine Cannabinoids Screen NEG Triglycerides Level 73 Cholesterol Level 235 LDL Cholesterol 148 HDL Cholesterol 72.3 Cholesterol/HDL Ratio 3.25 Vitamin B12 Level 379 25-Hydroxy Vitamin D Total 36.0 Result Diagram: 08/09/17 1745 08/10/17 1005 Imaging Last Impressions Head CT 08/09/17 1719 Signed Impressions: Service Date/Time: Wednesday, August 09, 2017 17:47 - CONCLUSION: Moderate severity atrophy. No acute findings. Panchito Demarco MD Assessment and Plan Problem List: (1) ALZHEIMER'S DISEASE WITH LATE ONSET ICD Code: G30.1 - ALZHEIMER'S DISEASE WITH LATE ONSET (2) Dementia with behavioral disturbance ICD Code: F03.91 - Unspecified dementia with behavioral disturbance Status: Acute (3) HTN (hypertension) ICD Code: I10 - Essential (primary) hypertension Assessment and Plan Patient is a 72-year-old male with primary medical history of HTN, dementia who came into the hospital ex parte by , per review of records, patient allegedly stopping traffic in writing tickets to the drivers. He is now admitted to inpatient psychiatry unit for further evaluation. Consulted for medical management. Dementia, Alzheimer's, with behavioral disturbance - Managed by psychiatry team - continue Namenda HTN, uncontrolled - Restart home medication lisinopril 5mg daily, metoprolol 25mg daily - increased 25 mg twice a day - Clonidine when necessary - Monitor BP trend Acute kidney injury, possibly with chronic kidney disease secondary to hypertensive nephropathy - PRINCIPAL CLERK 1.38 --> 1.27 - Avoid nephrotoxins - Encourage by mouth fluid hydration Hyperlipidemia - LDL 148 - ASCVD Risk 10 year 30.1%. Recommended for moderate to high intensity statin, BP lowering agents - Check LFTs for now. We will discuss with to start patient on atorvastatin 20 mg daily. DVT prop ambulatory low risk This note was transcribed by ROSANGELA Quinn. I, Dr. Brianna Andrew personally performed the history, physical exam, and medical decision making; and confirmed the accuracy of the information in the transcribed note. Authenticated by Dr. Brianna Andrew on 08/10/17 at 16:23. Code Status Full code Discussed Condition With Patient, nursing Problem Qualifiers (1) Dementia with behavioral disturbance: Qualified Codes: G30.1 - Alzheimer's disease with late onset; F02.81 - Dementia in other diseases classified elsewhere with behavioral disturbance Dottie Chan Aug 10, 2017 16:23 Brianna Andrew MD Aug 10, 2017 16:41
[2017-08-10] MEDS ORDERED: cloNIDine HCL 0.1 MG TAB PO PRN (17:00)
[2017-08-10 17:37] VITALS: BP 180/113; PULSE 84; RESP 18; TEMP 97.7; O2SAT 96
[2017-08-10 18:01] LABS: INDIRECT BILIRUBIN 0.8 MG/DL (0.0-0.8)
[2017-08-10] MEDS: MEMANTINE HCL 5 MG TAB PO SCH (20:18)
[2017-08-10] MEDS: METOPROLOL TARTRATE 25 MG TAB PO SCH (20:19)
[2017-08-11 06:05] VITALS: BP 157/119; PULSE 75; RESP 18; TEMP 97.4; O2SAT 98
[2017-08-11] MEDS: METOPROLOL TARTRATE 25 MG TAB PO SCH ×2 (08:43→20:52)
[2017-08-11] MEDS: MEMANTINE HCL 5 MG TAB PO SCH ×2 (08:44→20:52)
[2017-08-11] MEDS: SERTRALINE HCL 50 MG TAB PO SCH (08:45)
[2017-08-11] MEDS ORDERED: LISINOPRIL 5 MG TAB PO SCH (09:00)
[2017-08-11] MEDS ORDERED: METOPROLOL TARTRATE 25 MG TAB PO SCH (09:00)
--- NOTE | 2017-08-11 09:12 | HHI.PYPN ---
Subjective Chief Complaint: patient demented, was stopping traffic attempting to write traffic tickets Remarks Patient is seen in dayroom with floor staff, chart review, patient complained medications. It appears patient has been no behavioral problems. Continues significantly demented confused disoriented only aware of person. 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 He does denies suicidality does deny voices. We are attempting to meet with patient's family around noontime today Review of Systems Except as stated in HPI: all other systems reviewed are Neg Mental Status Examination Appearance: Appropriate Consciousness: Alert Orientation: Person (to person only) Motor Activity: Normal gait Speech: Other (difficulty with word finding) Language: Other (diminished capacity ) Fund of Knowledge: Poor Attention and Concentration: Easily Distracted Memory: Impaired Mood: Other (euthymic to mildly restricted) Affect: Other (decreased range and intensity) Thought Process & Associations: Loose associations, Disorganized Thought Content: Hallucinations (sees people who are trying to steal his things ) Hallucination Type: Visual Delusion Type: None Suicidal Ideation: No Suicidal Plan: No Suicidal Intention: No Homicidal Ideation: No Homicidal Plan: No Homicidal Intention: No Insight: Poor Judgment: Poor Results Labs Test 08/10/17 10:05 Blood Urea Nitrogen 22 MG/DL Creatinine 1.27 MG/DL Random Glucose 107 MG/DL Calcium Level 9.3 MG/DL Sodium Level 140 MEQ/L Potassium Level 3.9 MEQ/L Chloride Level 106 MEQ/L Carbon Dioxide Level 24.1 MEQ/L Anion Gap 10 MEQ/L Estimat Glomerular Filtration Rate 56 ML/MIN Hemoglobin A1c 5.4 % Total Bilirubin 1.0 MG/DL Direct Bilirubin 0.2 MG/DL Indirect Bilirubin 0.8 MG/DL Aspartate Amino Transf (AST/SGOT) 24 U/L Alanine Aminotransferase (ALT/SGPT) 25 U/L Alkaline Phosphatase 68 U/L Total Protein 7.5 GM/DL Albumin 4.0 GM/DL Triglycerides Level 73 MG/DL Cholesterol Level 235 MG/DL LDL Cholesterol 148 MG/DL HDL Cholesterol 72.3 MG/DL Cholesterol/HDL Ratio 3.25 RATIO Vitamin B12 Level 379 PG/ML 25-Hydroxy Vitamin D Total 36.0 ng/ML Vitals/IOs Vital Signs Date Time Temp Pulse Resp B/P (MAP) Pulse Ox O2 Delivery O2 Flow Rate FiO2 08/11/17 06:05 97.4 75 18 157/119 (132) 98 08/10/17 00:16 Room Air Assessment & Plan Problem List: (1) ALZHEIMER'S DISEASE WITH LATE ONSET ICD Codes: G30.1 - ALZHEIMER'S DISEASE WITH LATE ONSET (2) DEMENTIA IN OTH DISEASES CLASSD ELSWHR W BEHAVIORAL DISTURB ICD Codes: F02.81 - DEMENTIA IN OTH DISEASES CLASSD ELSWHR W BEHAVIORAL DISTURB Assessment & Plan Estimated LOS: days patient is severely demented confused and disorganized. Though no significant behavior problems have been noted. For now continue treatment plan admitting with family around noon today Justification for Cont. Inpt. At this time patient will decompensate and placed a lower level of care Discharge Planning Anticipate meeting with patient's family today to discuss diagnosis treatment medications and discharge planning and placement Request HC Surrog/Guard Advoc?: Yes Idris Michel MD Aug 11, 2017 09:12
--- NOTE | 2017-08-11 15:43 | HHI.PR ---
Subjective Remarks Patient is very confused. Ambulating the halls. BP uncontrolled. Objective Vitals Vital Signs Date Time Temp Pulse Resp B/P (MAP) Pulse Ox O2 Delivery O2 Flow Rate FiO2 08/11/17 06:05 97.4 75 18 157/119 (132) 98 08/10/17 17:37 97.7 84 18 180/113 (135) 96 Result Diagram: 08/09/17 1745 08/10/17 1005 Objective Remarks GENERAL: This is a well-nourished, well-developed patient, in no apparent distress. CARDIOVASCULAR: Normal rate and regular rhythm without murmurs, gallops, or rubs. RESPIRATORY: Good respiratory efforts. Breath sounds equal and clear to auscultation bilaterally. GASTROINTESTINAL: Abdomen soft, non-tender, non-distended. Normal active bowel sounds MUSCULOSKELETAL: Extremities without cyanosis, or edema. NEURO: Oriented to self only. Moves all ext x4 PSYCH: Pacing the halls. A/P Problem List: (1) ALZHEIMER'S DISEASE WITH LATE ONSET ICD Code: G30.1 - ALZHEIMER'S DISEASE WITH LATE ONSET (2) Dementia with behavioral disturbance ICD Code: F03.91 - Unspecified dementia with behavioral disturbance Status: Acute (3) HTN (hypertension) ICD Code: I10 - Essential (primary) hypertension Assessment and Plan 72-year-old male with primary medical history of HTN, dementia who came into the hospital ex parte by , per review of records, patient allegedly stopping traffic in writing tickets to the drivers. He is now admitted to inpatient psychiatry unit for further evaluation. Hospitalist following for medical management. Dementia, Alzheimer's, with behavioral disturbance - Managed by psychiatry team - continue Namenda HTN, uncontrolled - Increase lisinopril to 10mg daily, metoprolol 25mg twice a day - Clonidine when necessary - Monitor BP trend Acute kidney injury, possibly with chronic kidney disease secondary to hypertensive nephropathy - GAS PRODUCER 1.38 --> 1.27 - Avoid nephrotoxins - Encourage by mouth fluid hydration DVT prop ambulatory low risk Problem Qualifiers (1) Dementia with behavioral disturbance: Qualified Codes: G30.1 - Alzheimer's disease with late onset; F02.81 - Dementia in other diseases classified elsewhere with behavioral disturbance Bro Frankel MD Aug 11, 2017 15:43
[2017-08-11] MEDS ORDERED: LISINOPRIL 10 MG TAB PO ONE (15:45)
[2017-08-11 16:07] VITALS: BP 143/88; PULSE 91; RESP 17; TEMP 97.2; O2SAT 99
[2017-08-12 06:22] VITALS: BP 152/105; PULSE 70; RESP 16; TEMP 98; O2SAT 99
[2017-08-12] MEDS ORDERED: LISINOPRIL 20 MG TAB PO SCH (09:00)
[2017-08-12] MEDS: MEMANTINE HCL 5 MG TAB PO SCH (09:31)
[2017-08-12] MEDS: LISINOPRIL 10 MG TAB PO SCH (09:31)
[2017-08-12] MEDS: SERTRALINE HCL 50 MG TAB PO SCH (09:31)
[2017-08-12] MEDS: METOPROLOL TARTRATE 25 MG TAB PO SCH (09:32)
--- NOTE | 2017-08-12 14:07 | HHI.PYPN ---
Subjective Chief Complaint: patient demented, was stopping traffic attempting to write traffic tickets Remarks Patient seen in day room with medical student matilde, chart review, patient compliant medication. Patient continues calm pleasant no behavioral problems. He also continues markedly confused disoriented and demented. He recognizes his name. He vaguely with encouragement remembers his visiting him. For now continue treatment Review of Systems Except as stated in HPI: all other systems reviewed are Neg Mental Status Examination Appearance: Appropriate Consciousness: Alert Orientation: Person (to person only) Motor Activity: Normal gait Speech: Other (difficulty with word finding) Language: Other (diminished capacity ) Fund of Knowledge: Poor Attention and Concentration: Easily Distracted Memory: Impaired Mood: Other (euthymic to mildly restricted) Affect: Other (decreased range and intensity) Thought Process & Associations: Loose associations, Disorganized Thought Content: Hallucinations (sees people who are trying to steal his things ) Hallucination Type: Visual Delusion Type: None Suicidal Ideation: No Suicidal Plan: No Suicidal Intention: No Homicidal Ideation: No Homicidal Plan: No Homicidal Intention: No Insight: Poor Judgment: Poor Results Vitals/IOs Vital Signs Date Time Temp Pulse Resp B/P (MAP) Pulse Ox O2 Delivery O2 Flow Rate FiO2 08/12/17 06:22 98.0 70 16 152/105 (121) 99 08/10/17 00:16 Room Air Assessment & Plan Problem List: (1) ALZHEIMER'S DISEASE WITH LATE ONSET ICD Codes: G30.1 - ALZHEIMER'S DISEASE WITH LATE ONSET (2) DEMENTIA IN OTH DISEASES CLASSD ELSWHR W BEHAVIORAL DISTURB ICD Codes: F02.81 - DEMENTIA IN OTH DISEASES CLASSD ELSWHR W BEHAVIORAL DISTURB Assessment & Plan Estimated LOS: days patient continues confused demented markedly disorganized though no behavior problem. Compliant medications Justification for Cont. Inpt. At this time patient decompensate if not placed in an appropriate level of care Discharge Planning We need to continue working with to find an appropriate placement Request HC Surrog/Guard Advoc?: Yes Idris Michel MD Aug 12, 2017 14:07
[2017-08-12 18:03] VITALS: BP 136/90; PULSE 74; RESP 17; TEMP 98; O2SAT 99
[2017-08-13 05:58] VITALS: BP 153/97; PULSE 77; RESP 17; TEMP 98; O2SAT 97
[2017-08-13] MEDS: METOPROLOL TARTRATE 25 MG TAB PO SCH ×3 (09:36→21:00)
[2017-08-13] MEDS: SERTRALINE HCL 50 MG TAB PO SCH (09:36)
[2017-08-13] MEDS: MEMANTINE HCL 5 MG TAB PO SCH ×3 (09:36→21:00)
[2017-08-13] MEDS: LISINOPRIL 10 MG TAB PO SCH (09:37)
--- NOTE | 2017-08-13 15:10 | HHI.PYPN ---
Subjective Chief Complaint: patient demented, was stopping traffic attempting to write traffic tickets Remarks Pt seen and discussed with staff. He is compliant with medications. He remains confused and wanted to know why was not in his room. During interview he repeatedly looks out of window and states that his is parked in a white car behind a building. "What she is doing I don't know but it must be important. " No behavioral problems on unit. No SI/HI Mental Status Examination Appearance: Appropriate Consciousness: Alert Orientation: Person (to person only) Motor Activity: Normal gait Speech: Other (difficulty with word finding) Language: Other (diminished capacity ) Fund of Knowledge: Poor Attention and Concentration: Easily Distracted Memory: Impaired Mood: Anxious Affect: Anxious Thought Process & Associations: Loose associations Thought Content: Hallucinations Hallucination Type: Visual Delusion Type: None Suicidal Ideation: No Suicidal Plan: No Suicidal Intention: No Homicidal Ideation: No Homicidal Plan: No Homicidal Intention: No Insight: Poor Judgment: Poor Results Vitals/IOs Vital Signs Date Time Temp Pulse Resp B/P (MAP) Pulse Ox O2 Delivery O2 Flow Rate FiO2 08/13/17 05:58 98.0 77 17 153/97 (115) 97 08/10/17 00:16 Room Air Assessment & Plan Problem List: (1) ALZHEIMER'S DISEASE WITH LATE ONSET ICD Codes: G30.1 - ALZHEIMER'S DISEASE WITH LATE ONSET (2) DEMENTIA IN OTH DISEASES CLASSD ELSWHR W BEHAVIORAL DISTURB ICD Codes: F02.81 - DEMENTIA IN OTH DISEASES CLASSD ELSWHR W BEHAVIORAL DISTURB Assessment & Plan Continue current tx plan Estimated LOS: days Justification for Cont. Inpt. risk of decompensation Request HC Surrog/Guard Advoc?: Yes Zully Nova MD Aug 13, 2017 15:10
[2017-08-13 18:20] VITALS: BP 136/81; PULSE 82; RESP 18; TEMP 97.4; O2SAT 97
[2017-08-14 06:00] VITALS: BP 162/89; PULSE 76; RESP 18; TEMP 97.8; O2SAT 99
[2017-08-14] MEDS: SERTRALINE HCL 50 MG TAB PO SCH (08:47)
[2017-08-14] MEDS: MEMANTINE HCL 5 MG TAB PO SCH ×2 (08:48→21:35)
[2017-08-14] MEDS: LISINOPRIL 10 MG TAB PO SCH (08:48)
[2017-08-14] MEDS: METOPROLOL TARTRATE 25 MG TAB PO SCH ×2 (08:50→21:35)
--- NOTE | 2017-08-14 14:43 | HHI.PYPN ---
Subjective Chief Complaint: patient demented, was stopping traffic attempting to write traffic tickets Remarks Pt seen and discussed with staff. He remains pleasant but confused. He is cooperative with care and treatment. No behavioral problems. He confabulates and states that 3 men will becoming to check this place out and "take their turns here too." Mental Status Examination Appearance: Appropriate Consciousness: Alert Orientation: Person (to person only) Motor Activity: Normal gait Speech: Other (difficulty with word finding) Language: Other (diminished capacity ) Fund of Knowledge: Poor Attention and Concentration: Easily Distracted Memory: Impaired Mood: Anxious Affect: Anxious Thought Process & Associations: Loose associations Thought Content: Hallucinations Hallucination Type: Visual Delusion Type: None Suicidal Ideation: No Suicidal Plan: No Suicidal Intention: No Homicidal Ideation: No Homicidal Plan: No Homicidal Intention: No Insight: Poor Judgment: Poor Results Vitals/IOs Vital Signs Date Time Temp Pulse Resp B/P (MAP) Pulse Ox O2 Delivery O2 Flow Rate FiO2 08/14/17 06:00 97.8 76 18 162/89 (113) 99 Assessment & Plan Problem List: (1) ALZHEIMER'S DISEASE WITH LATE ONSET ICD Codes: G30.1 - ALZHEIMER'S DISEASE WITH LATE ONSET (2) DEMENTIA IN OTH DISEASES CLASSD ELSWHR W BEHAVIORAL DISTURB ICD Codes: F02.81 - DEMENTIA IN OTH DISEASES CLASSD ELSWHR W BEHAVIORAL DISTURB Assessment & Plan Continue current tx plan. Estimated LOS: days Justification for Cont. Inpt. risk of decompensaton Request HC Surrog/Guard Advoc?: Yes Zully Nova MD Aug 14, 2017 14:43
--- NOTE | 2017-08-14 16:25 | HHI.PR ---
Subjective Remarks Patient is still confused. Confabulates. BP acceptable. Objective Vitals Vital Signs Date Time Temp Pulse Resp B/P (MAP) Pulse Ox O2 Delivery O2 Flow Rate FiO2 08/14/17 06:00 97.8 76 18 162/89 (113) 99 08/13/17 18:20 97.4 82 18 136/81 (99) 97 Result Diagram: 08/10/17 1005 Objective Remarks GENERAL: This is a well-nourished, well-developed patient, in no apparent distress. CARDIOVASCULAR: Normal rate and regular rhythm without murmurs, gallops, or rubs. RESPIRATORY: Good respiratory efforts. Breath sounds equal and clear to auscultation bilaterally. GASTROINTESTINAL: Abdomen soft, non-tender, non-distended. Normal active bowel sounds MUSCULOSKELETAL: Extremities without cyanosis, or edema. NEURO: Oriented to self only. Moves all ext x4 PSYCH: Pacing the halls. A/P Problem List: (1) ALZHEIMER'S DISEASE WITH LATE ONSET ICD Code: G30.1 - ALZHEIMER'S DISEASE WITH LATE ONSET (2) Dementia with behavioral disturbance ICD Code: F03.91 - Unspecified dementia with behavioral disturbance Status: Acute (3) HTN (hypertension) ICD Code: I10 - Essential (primary) hypertension Assessment and Plan 72-year-old male with primary medical history of HTN, dementia who came into the hospital ex parte by , per review of records, patient allegedly stopping traffic in writing tickets to the drivers. He is now admitted to inpatient psychiatry unit for further evaluation. Hospitalist following for medical management. Dementia, Alzheimer's, with behavioral disturbance - Managed by psychiatry team - continue Namenda HTN, BP acceptable on - Increased dose of lisinopril 10mg daily, metoprolol 25mg twice a day - Clonidine when necessary - Monitor BP trend Acute kidney injury, possibly with chronic kidney disease secondary to hypertensive nephropathy - LOG LOADER 1.38 --> 1.27 - Avoid nephrotoxins - Encourage by mouth fluid hydration DVT prop ambulatory low risk Discharge Planning Patient is medically stable. Will sign off. Please call or consult as needed. Problem Qualifiers (1) Dementia with behavioral disturbance: Qualified Codes: G30.1 - Alzheimer's disease with late onset; F02.81 - Dementia in other diseases classified elsewhere with behavioral disturbance Bro Frankel MD Aug 14, 2017 16:25
[2017-08-14 17:29] VITALS: BP 148/95; PULSE 59; RESP 18; TEMP 97.9; O2SAT 99
[2017-08-14 20:15] VITALS: BP 129/71; PULSE 49
[2017-08-14 21:26] VITALS: PULSE 86
[2017-08-15 06:18] VITALS: BP 163/90; PULSE 89; RESP 17; TEMP 97.7; O2SAT 98
[2017-08-15 08:30] VITALS: BP 107/81; PULSE 61
[2017-08-15] MEDS: MEMANTINE HCL 5 MG TAB PO SCH ×2 (09:10→21:23)
[2017-08-15] MEDS: METOPROLOL TARTRATE 25 MG TAB PO SCH ×2 (09:11→21:23)
[2017-08-15] MEDS: LISINOPRIL 10 MG TAB PO SCH (09:11)
[2017-08-15] MEDS: SERTRALINE HCL 50 MG TAB PO SCH (09:11)
--- NOTE | 2017-08-15 14:04 | PD.TTN ---
Patient Problems 1. Discharge planning 2. Medication compliance 3. Knowledge deficit 4. Lack of coping skills Progress Toward Goals Provider Present: Dr. Rambo Michel Provider Input: Patient is pleasantly confused and is unable to provide meaningful insight to his mental health. patient is compliant with medications and continues to show no behavioral issues on the unit. Nurse(s) Input: Patient is compliant with medications and is observed to be wandering out the unit. Patient is cooperative and denies side effects from medication. Psychiatric Counselors Present: ABHISHEK Stearns Psych Therapist Input: Patient is confused and continues to wander around the unit. Counselor has been in close connection with Marie in regards to placement. Counselor has gotten in contact with a handful of SNF in regards to patient's placement. Patient is needing locked unit due to high elopment. Group Spec/RT/OT/MCKAY Present: Lul Flores OT Group Spec/RT/OT/MCKAY Input: Patient does not attend group. Ivy Lux Aug 15, 2017 14:04
--- NOTE | 2017-08-15 14:29 | HHI.PYPN ---
Subjective Chief Complaint: patient demented, was stopping traffic attempting to write traffic tickets Remarks Patient seen in day room with medical student matilde. Patient continues calm friendly, chart reviewed, patient compliant medications. Patient continues significantly disorganized. Only aware of himself. He is not showing any behavioral problems. Review of Systems Except as stated in HPI: all other systems reviewed are Neg Mental Status Examination Appearance: Appropriate Consciousness: Alert Orientation: Person (to person only) Motor Activity: Normal gait Speech: Other (difficulty with word finding) Language: Other (diminished capacity ) Fund of Knowledge: Poor Attention and Concentration: Easily Distracted Memory: Impaired Mood: Anxious Affect: Anxious Thought Process & Associations: Loose associations Thought Content: Hallucinations Hallucination Type: Visual Delusion Type: None Suicidal Ideation: No Suicidal Plan: No Suicidal Intention: No Homicidal Ideation: No Homicidal Plan: No Homicidal Intention: No Insight: Poor Judgment: Poor Results Vitals/IOs Vital Signs Date Time Temp Pulse Resp B/P (MAP) Pulse Ox O2 Delivery O2 Flow Rate FiO2 08/15/17 08:30 61 107/81 (90) 08/15/17 06:18 97.7 17 98 Assessment & Plan Problem List: (1) ALZHEIMER'S DISEASE WITH LATE ONSET ICD Codes: G30.1 - ALZHEIMER'S DISEASE WITH LATE ONSET (2) DEMENTIA IN OTH DISEASES CLASSD ELSWHR W BEHAVIORAL DISTURB ICD Codes: F02.81 - DEMENTIA IN OTH DISEASES CLASSD ELSWHR W BEHAVIORAL DISTURB Assessment & Plan Estimated LOS: days patient continues severely demented and disorganized. Though no significant behavioral problems Justification for Cont. Inpt. At this time patient will decompensate the placed a lower level of care Discharge Planning Counselor continues to work with family the finding appropriate placement that is safe and secure for this man Request HC Surrog/Guard Advoc?: Yes Idris Michel MD Aug 15, 2017 14:29
[2017-08-15 17:44] VITALS: BP 109/66; PULSE 88; RESP 18; TEMP 97.7; O2SAT 97
[2017-08-15 20:58] VITALS: BP 136/92; PULSE 98
[2017-08-16 06:02] VITALS: BP 146/89; PULSE 78; RESP 18; TEMP 97.7; O2SAT 100
[2017-08-16] MEDS: METOPROLOL TARTRATE 25 MG TAB PO SCH ×2 (08:37→21:28)
[2017-08-16] MEDS: MEMANTINE HCL 5 MG TAB PO SCH ×2 (08:37→21:28)
[2017-08-16] MEDS: LISINOPRIL 10 MG TAB PO SCH (08:37)
[2017-08-16] MEDS: SERTRALINE HCL 50 MG TAB PO SCH (08:37)
--- NOTE | 2017-08-16 10:14 | HHI.PYPN ---
Subjective Chief Complaint: patient demented, was stopping traffic attempting to write traffic tickets Remarks Met with patient's , [id number], counselor Ivy and medical student Yuriy. We discussed patient's history, dementia history, behaviors, medications and treatment recommendations. The family agrees that at this time there unable to care for patient at home. Need to find an appropriate block dementia unit. denies prior alcohol or drug use, prior psychiatric issues. Appears this is second marriage for the 2 of them he does have an adult daughter by her first marriage. He is estranged from that daughter. We also did discuss advanced directives. is going to confer with family members. Patient then seen on the unit. He continues calm cooperative pleasant diffusely confused. For now will continue to observe and assess Review of Systems Except as stated in HPI: all other systems reviewed are Neg Mental Status Examination Appearance: Appropriate Consciousness: Alert Orientation: Person (to person only) Motor Activity: Normal gait Speech: Other (difficulty with word finding) Language: Other (diminished capacity ) Fund of Knowledge: Poor Attention and Concentration: Easily Distracted Memory: Impaired Mood: Anxious Affect: Anxious Thought Process & Associations: Loose associations Thought Content: Hallucinations Hallucination Type: Visual Delusion Type: None Suicidal Ideation: No Suicidal Plan: No Suicidal Intention: No Homicidal Ideation: No Homicidal Plan: No Homicidal Intention: No Insight: Poor Judgment: Poor Results Vitals/IOs Vital Signs Date Time Temp Pulse Resp B/P (MAP) Pulse Ox O2 Delivery O2 Flow Rate FiO2 08/16/17 06:02 97.7 78 18 146/89 (108) 100 Assessment & Plan Problem List: (1) ALZHEIMER'S DISEASE WITH LATE ONSET ICD Codes: G30.1 - ALZHEIMER'S DISEASE WITH LATE ONSET (2) DEMENTIA IN OTH DISEASES CLASSD ELSWHR W BEHAVIORAL DISTURB ICD Codes: F02.81 - DEMENTIA IN OTH DISEASES CLASSD ELSWHR W BEHAVIORAL DISTURB Assessment & Plan Estimated LOS: days patient appears demented confused disoriented. No significant behavior problems have been noted on the unit. Though there have been behaviors in the community that led to this hospitalization. Justification for Cont. Inpt. This time patient will decompensate with placed on the lower level of care Discharge Planning Counselor work with family to find an appropriate placement Request HC Surrog/Guard Advoc?: Yes Idris Michel MD Aug 16, 2017 10:14
[2017-08-16 18:00] VITALS: BP 151/95; PULSE 95; RESP 18; TEMP 97.3; O2SAT 98
[2017-08-16 19:45] VITALS: BP 143/93; PULSE 91
[2017-08-17 06:00] VITALS: BP_SYST 109; BP_SYST 160; BP_SYST 163; BP_DIAS 102; BP_DIAS 103; BP_DIAS 59; PULSE 85; RESP 18; TEMP 97.4; O2SAT 94
[2017-08-17] MEDS: SERTRALINE HCL 50 MG TAB PO SCH (10:16)
[2017-08-17] MEDS: MEMANTINE HCL 5 MG TAB PO SCH ×2 (10:16→21:20)
[2017-08-17] MEDS: LISINOPRIL 10 MG TAB PO SCH (10:17)
[2017-08-17] MEDS: METOPROLOL TARTRATE 25 MG TAB PO SCH ×2 (10:17→21:20)
--- NOTE | 2017-08-17 12:29 | PD.TTN ---
Patient Problems 1. Discharge planning 2. Medication compliance 3. Knowledge deficit 4. Lack of coping skills Progress Toward Goals Provider Present: Dr. Rambo Michel Provider Input: Patient is pleasantly confused and is unable to provide meaningful insight to his mental health. patient is compliant with medications and continues to show no behavioral issues on the unit. 08/17/17 Patient presents pleasant and disorganized, continues to meet criteria. Nurse(s) Input: Patient is compliant with medications and is observed to be wandering out the unit. Patient is cooperative and denies side effects from medication. 08/17/17 Patient's nurse Aniya reports patient is disoriented and confused. Patient is pleasant, medication compliant, no behavioral problem on unit. Psychiatric Counselors Present: ABHISHEK Kwon, BOO StearnsLuis Psych Therapist Input: Patient is confused and continues to wander around the unit. Counselor has been in close connection with Marie in regards to placement. Counselor has gotten in contact with a handful of SNF in regards to patient's placement. Patient is needing locked unit due to high elopment. 08/17/17 Patient presents pleasant cooperative, restless, and confused, speech is disorganized. Patient is alert to person only. Patient has no insight and continues to present with delusional content. Patient makes good eye contact. Patient is denying suicidal and homicidal ideation. Patient is medication compliant. Patient is eating but due to mental status is not able to remember. Patient continues to meet criteria. Group Spec/RT/OT/MCKAY Present: WOODY Foster, Lul Flores, PACO Group Spec/RT/OT/MCKAY Input: Patient does not attend group. 08/17/17 Patient attends exercise only. Pleasantly confused. Unable to tolerate most groups. Discharged focus, easily redirected. Carmelita Booker Aug 17, 2017 12:28
--- NOTE | 2017-08-17 13:38 | HHI.PYPN ---
Subjective Chief Complaint: patient demented, was stopping traffic attempting to write traffic tickets Remarks Patient seen in dayroom the floor staff, chart reviewed, patient compliant medications. Patient continues no significant behavioral problems he is calm and pleasant though also markedly confused and disorganized. Review of Systems Except as stated in HPI: all other systems reviewed are Neg Mental Status Examination Appearance: Appropriate Consciousness: Alert Orientation: Person (to person only) Motor Activity: Normal gait Speech: Other (difficulty with word finding) Language: Other (diminished capacity ) Fund of Knowledge: Poor Attention and Concentration: Easily Distracted Memory: Impaired Mood: Anxious Affect: Anxious Thought Process & Associations: Loose associations Thought Content: Hallucinations Hallucination Type: Visual Delusion Type: None Suicidal Ideation: No Suicidal Plan: No Suicidal Intention: No Homicidal Ideation: No Homicidal Plan: No Homicidal Intention: No Insight: Poor Judgment: Poor Results Vitals/IOs Vital Signs Date Time Temp Pulse Resp B/P (MAP) Pulse Ox O2 Delivery O2 Flow Rate FiO2 08/17/17 06:00 97.4 85 18 109/59 (76) 94 163/103 (123) 160/102 (121) Assessment & Plan Problem List: (1) ALZHEIMER'S DISEASE WITH LATE ONSET ICD Codes: G30.1 - ALZHEIMER'S DISEASE WITH LATE ONSET (2) DEMENTIA IN OTH DISEASES CLASSD ELSWHR W BEHAVIORAL DISTURB ICD Codes: F02.81 - DEMENTIA IN OTH DISEASES CLASSD ELSWHR W BEHAVIORAL DISTURB Assessment & Plan Estimated LOS: days patient continues demented and confused but no significant behavioral problems. Family continues to work with placement issues Justification for Cont. Inpt. At this time patient will decompensate have not placed in an appropriate level of care Discharge Planning Family continues to work with placement issues Request HC Surrog/Guard Advoc?: Yes Idris Michel MD Aug 17, 2017 13:38
[2017-08-17 18:31] VITALS: BP 136/101; PULSE 81; RESP 17; TEMP 98.7; O2SAT 98
[2017-08-18 06:10] VITALS: BP_SYST 142; BP_SYST 168; BP_DIAS 100; BP_DIAS 89; PULSE 88; RESP 17; TEMP 97.6; O2SAT 99
[2017-08-18] MEDS: LISINOPRIL 10 MG TAB PO SCH (08:33)
[2017-08-18] MEDS: METOPROLOL TARTRATE 25 MG TAB PO SCH ×2 (08:33→21:24)
[2017-08-18] MEDS: SERTRALINE HCL 50 MG TAB PO SCH (08:33)
--- NOTE | 2017-08-18 11:02 | HHI.PYPN ---
Subjective Chief Complaint: patient demented, was stopping traffic attempting to write traffic tickets Remarks Patient seen in [address] with and daughter, patient retained by Face Worker Andreea on a continue meds with to be health care surrogate/guardian advocate patient continues to be diffusely confused disorganized oriented only to self. Though no significant behavioral problems Review of Systems Except as stated in HPI: all other systems reviewed are Neg Mental Status Examination Appearance: Appropriate Consciousness: Alert Orientation: Person (to person only) Motor Activity: Normal gait Speech: Other (difficulty with word finding) Language: Other (diminished capacity ) Fund of Knowledge: Poor Attention and Concentration: Easily Distracted Memory: Impaired Mood: Anxious Affect: Anxious Thought Process & Associations: Loose associations Thought Content: Hallucinations Hallucination Type: Visual Delusion Type: None Suicidal Ideation: No Suicidal Plan: No Suicidal Intention: No Homicidal Ideation: No Homicidal Plan: No Homicidal Intention: No Insight: Poor Judgment: Poor Results Vitals/IOs Vital Signs Date Time Temp Pulse Resp B/P (MAP) Pulse Ox O2 Delivery O2 Flow Rate FiO2 08/18/17 06:10 97.6 88 17 168/100 (122) 99 142/89 (106) Assessment & Plan Problem List: (1) ALZHEIMER'S DISEASE WITH LATE ONSET ICD Codes: G30.1 - ALZHEIMER'S DISEASE WITH LATE ONSET (2) DEMENTIA IN OTH DISEASES CLASSD ELSWHR W BEHAVIORAL DISTURB ICD Codes: F02.81 - DEMENTIA IN OTH DISEASES CLASSD ELSWHR W BEHAVIORAL DISTURB Assessment & Plan Estimated LOS: days patient retained by Face Worker Andreea, to be health care surrogate/guardian advocate. Continue to work on placement issues Justification for Cont. Inpt. At this time patient will decompensate the placed a lower level of care Discharge Planning Continues to work on placement issues Request HC Surrog/Guard Advoc?: Yes Idris Michel MD Aug 18, 2017 11:02
[2017-08-18] MEDS: MEMANTINE HCL 5 MG TAB PO SCH ×2 (11:30→21:24)
[2017-08-18 17:01] VITALS: BP 137/85; PULSE 75; RESP 17; TEMP 97.9; O2SAT 99
[2017-08-19 06:04] VITALS: BP 148/97; PULSE 76; RESP 17; TEMP 97.8; O2SAT 98
[2017-08-19] MEDS: METOPROLOL TARTRATE 25 MG TAB PO SCH ×2 (08:05→21:17)
[2017-08-19] MEDS: LISINOPRIL 10 MG TAB PO SCH (08:05)
[2017-08-19] MEDS: MEMANTINE HCL 5 MG TAB PO SCH ×2 (08:05→21:17)
[2017-08-19] MEDS: SERTRALINE HCL 50 MG TAB PO SCH (08:05)
--- NOTE | 2017-08-19 13:41 | HHI.PYPN ---
Subjective Chief Complaint: patient demented, was stopping traffic attempting to write traffic tickets Remarks Patient seen in day room with nurse Em, chart reviewed, patient compliant medication. Patient continues diffusely confused disoriented, though he remains pleasant, in no behavioral problems. Review of Systems Except as stated in HPI: all other systems reviewed are Neg Mental Status Examination Appearance: Appropriate Consciousness: Alert Orientation: Person (to person only) Motor Activity: Normal gait Speech: Other (difficulty with word finding) Language: Other (diminished capacity ) Fund of Knowledge: Poor Attention and Concentration: Easily Distracted Memory: Impaired Mood: Anxious Affect: Anxious Thought Process & Associations: Loose associations Thought Content: Hallucinations Hallucination Type: Visual Delusion Type: None Suicidal Ideation: No Suicidal Plan: No Suicidal Intention: No Homicidal Ideation: No Homicidal Plan: No Homicidal Intention: No Insight: Poor Judgment: Poor Results Vitals/IOs Vital Signs Date Time Temp Pulse Resp B/P (MAP) Pulse Ox O2 Delivery O2 Flow Rate FiO2 08/19/17 06:04 97.8 76 17 148/97 (114) 98 Intake and Output 08/19/17 08/19/17 08/20/17 08:00 16:00 00:00 Intake Total 720 ml 360 ml Balance 720 ml 360 ml Assessment & Plan Problem List: (1) ALZHEIMER'S DISEASE WITH LATE ONSET ICD Codes: G30.1 - ALZHEIMER'S DISEASE WITH LATE ONSET (2) DEMENTIA IN OTH DISEASES CLASSD ELSWHR W BEHAVIORAL DISTURB ICD Codes: F02.81 - DEMENTIA IN OTH DISEASES CLASSD ELSWHR W BEHAVIORAL DISTURB Assessment & Plan Estimated LOS: days patient weighs confused demented though no behavior problems, compliant medications Justification for Cont. Inpt. Family continues to work on placement issues Request HC Surrog/Guard Advoc?: Yes Idris Michel MD Aug 19, 2017 13:41
[2017-08-19 18:09] VITALS: BP 150/65; PULSE 89; RESP 16; TEMP 97.4; O2SAT 98
[2017-08-20 05:58] VITALS: BP 173/94; PULSE 59; RESP 18; TEMP 97.6; O2SAT 98
[2017-08-20] MEDS: METOPROLOL TARTRATE 25 MG TAB PO SCH ×2 (08:04→21:16)
[2017-08-20] MEDS: LISINOPRIL 10 MG TAB PO SCH (08:04)
[2017-08-20] MEDS: SERTRALINE HCL 50 MG TAB PO SCH (08:04)
[2017-08-20] MEDS: MEMANTINE HCL 5 MG TAB PO SCH ×2 (08:04→21:16)
--- NOTE | 2017-08-20 10:50 | HHI.PYPN ---
Subjective Chief Complaint: patient demented, was stopping traffic attempting to write traffic tickets Remarks Patient was seen and case discussed with nursing. Patient is pleasant and cooperative with exam. He is alert and oriented 1, not knowing he is in the hospital or the function of his nurse. His compliant with his medications and behaving well on the unit. Remains preoccupied staring out the window per nursing. Mood is "good." Mental Status Examination Appearance: Appropriate Consciousness: Alert Orientation: Person (to person only) Motor Activity: Normal gait Speech: Other (difficulty with word finding) Language: Other (diminished capacity ) Fund of Knowledge: Poor Attention and Concentration: Easily Distracted Memory: Impaired Mood: Appropriate Affect: Anxious Thought Process & Associations: Loose associations Thought Content: Hallucinations Hallucination Type: Visual (denies today) Delusion Type: None Suicidal Ideation: No Suicidal Plan: No Suicidal Intention: No Homicidal Ideation: No Homicidal Plan: No Homicidal Intention: No Insight: Poor Judgment: Poor Results Vitals/IOs Vital Signs Date Time Temp Pulse Resp B/P (MAP) Pulse Ox O2 Delivery O2 Flow Rate FiO2 08/20/17 05:58 97.6 59 18 173/94 (120) 98 Assessment & Plan Problem List: (1) ALZHEIMER'S DISEASE WITH LATE ONSET ICD Codes: G30.1 - ALZHEIMER'S DISEASE WITH LATE ONSET (2) DEMENTIA IN OTH DISEASES CLASSD ELSWHR W BEHAVIORAL DISTURB ICD Codes: F02.81 - DEMENTIA IN OTH DISEASES CLASSD ELSWHR W BEHAVIORAL DISTURB Assessment & Plan Continue current treatment plan Justification for Cont. Inpt. Patient will decompensate in a less restrictive setting Request HC Surrog/Guard Advoc?: Yes Cristi Beck DO Aug 20, 2017 10:50
[2017-08-20 18:23] VITALS: BP 151/71; PULSE 92; RESP 18; TEMP 97; O2SAT 99
[2017-08-21 05:25] VITALS: BP 144/87; PULSE 94; RESP 18; TEMP 98.1
[2017-08-21] MEDS: LISINOPRIL 10 MG TAB PO SCH (09:56)
[2017-08-21] MEDS: METOPROLOL TARTRATE 25 MG TAB PO SCH ×2 (09:56→21:47)
[2017-08-21] MEDS: MEMANTINE HCL 5 MG TAB PO SCH ×2 (09:56→21:47)
[2017-08-21] MEDS: SERTRALINE HCL 50 MG TAB PO SCH (09:59)
--- NOTE | 2017-08-21 12:41 | HHI.PYPN ---
Subjective Chief Complaint: patient demented, was stopping traffic attempting to write traffic tickets Remarks Patient was seen and case discussed with nursing. Patient is spending his time wandering around the unit looking out the window. Nursing says it is because he thinks his is out there were patient says he is just bored. We reviewed.'s activities he can do here on the unit. He is been behaving well. No outbursts. Tolerating his medications well. Remains mildly confused Mental Status Examination Appearance: Appropriate Consciousness: Alert Orientation: Person (to person only), Place Motor Activity: Normal gait Speech: Other (difficulty with word finding) Language: Other (diminished capacity ) Fund of Knowledge: Poor Attention and Concentration: Easily Distracted Memory: Impaired Mood: Appropriate Affect: Anxious Thought Process & Associations: Disorganized Thought Content: Appropriate Hallucination Type: Visual (denies today) Delusion Type: None Suicidal Ideation: No Suicidal Plan: No Suicidal Intention: No Homicidal Ideation: No Homicidal Plan: No Homicidal Intention: No Insight: Poor Judgment: Poor Results Vitals/IOs Vital Signs Date Time Temp Pulse Resp B/P (MAP) Pulse Ox O2 Delivery O2 Flow Rate FiO2 08/21/17 05:25 98.1 94 18 144/87 (106) 08/20/17 18:23 99 Assessment & Plan Problem List: (1) ALZHEIMER'S DISEASE WITH LATE ONSET ICD Codes: G30.1 - ALZHEIMER'S DISEASE WITH LATE ONSET (2) DEMENTIA IN OTH DISEASES CLASSD ELSWHR W BEHAVIORAL DISTURB ICD Codes: F02.81 - DEMENTIA IN OTH DISEASES CLASSD ELSWHR W BEHAVIORAL DISTURB Assessment & Plan Continue current treatment plan Justification for Cont. Inpt. Patient will decompensate in a less restrictive setting Request HC Surrog/Guard Advoc?: Yes Cristi Beck DO Aug 21, 2017 12:41
[2017-08-21 21:23] VITALS: BP 166/113; PULSE 106
[2017-08-22 05:46] VITALS: BP 148/89; PULSE 82; RESP 17; TEMP 98.1
[2017-08-22] MEDS: SERTRALINE HCL 50 MG TAB PO SCH (08:51)
[2017-08-22] MEDS: LISINOPRIL 10 MG TAB PO SCH (08:51)
[2017-08-22] MEDS: METOPROLOL TARTRATE 25 MG TAB PO SCH (08:51)
[2017-08-22] MEDS: MEMANTINE HCL 5 MG TAB PO SCH (08:51)
[2017-08-22] MEDS ORDERED: NAME5TAB2 PO (09:13)
[2017-08-22] MEDS ORDERED: METO25TA3 PO (09:13)
[2017-08-22] MEDS ORDERED: ZOLO25TA PO (09:13)
[2017-08-22] MEDS ORDERED: LISI10TA3 PO (09:13)
--- NOTE | 2017-08-22 09:23 | HHI.DS ---
Psychiatry Discharge Summary Inpatient Psychiatric care?: Yes Advance Directive: No Reason Not Provided: Pt has none Mental Health AdvanceDirective: No Health Care Proxy: No Admission Admission Date Aug 09, 2017 at 23:00 Admission Diagnosis: (1) DEMENTIA IN OTH DISEASES CLASSD ELSWHR W BEHAVIORAL DISTURB ICD Code: F02.81 - DEMENTIA IN OTH DISEASES CLASSD ELSWHR W BEHAVIORAL DISTURB (2) ALZHEIMER'S DISEASE WITH LATE ONSET ICD Code: G30.1 - ALZHEIMER'S DISEASE WITH LATE ONSET Brief History Patient is a 72-year-old white male who comes here under an ex parte signed by Judge Anika Doran dated 09 August 2017 follow-up by his . She give a history of her having dementia. That he was [facility]. He is a state them becoming somewhat more aggressive. Taking the family car. Stopping traffic attempting to give tickets to [employer] company driver's. Patient seen screen in our ED and toxicology negative bladder: Negative. At the present time patient sitting quietly in his room nurse Cherie present throughout session patient is a tall alert clean and neat white male appears somewhat younger than stated age blond hair close brush cut. He is alert oriented only to his name. He showing marked confusion disorganization almost to the point of word salad. He is unable to remember any of the events leading to the ex parte. There does denies suicidality. Homicidality. Voices or visions. Is quite vague showing memory issues also related to his relationship with his . At the present time patient does meet criteria for inpatient psychiatric hospitalization of the [place] act I will do first opinion request second opinion. I also feel he does not have capacity thus I'll ask for healthcare surrogate and a guardian advocate. Have counseled call patient's to arrange for a family meeting tomorrow around lunchtime. We need to discuss medications diagnosis and possible placement issues it appears that attempted to place him in a voluntary HALF-WAY though less than a very brief time only Patient was seen today for psychiatric evaluation and at second opinion. Was found the recreational area of the unit. Calm, cooperative and pleasant. Pleasantly demented. Patient says that he has been watching through the windows the cars in the parking lot, he says that all those cars were brought here by his sister. He reports good mood, nice suicidal and homicidal ideation , he denies visual and auditory hallucinations. At the moment of this evaluation no agitation, no paranoia, no florid psychosis, aggressive behavior reported. Tobacco Use In Past 30 Days: No Tobacco Past 30 Days Alcohol Use: Never Hospital Course Patient's hospital course was uneventful. His significant cognitive deficits remain stable. There are no significant behavioral problems. Patient show compliance with medication from admission. He denies suicidality homicidality voices or visions. We have had meetings the patient's family and they're aware of their inability to care for this patient at home. The realizes the need for appropriate placement. Family has visited [facility]. [facility] has a bed available for this gentleman today. At this time patient reached maximum benefit of this hospitalization. Thus will be discharged today to [facility] , Rx 1 month, follow-up mental health services through that facility Results Blood Pressure 148 / 89 Vital Signs Date Time Temp Pulse Resp B/P (MAP) Pulse Ox O2 Delivery O2 Flow Rate FiO2 08/22/17 05:46 98.1 82 17 148/89 (108) 08/20/17 18:23 99 Laboratory Results Test 08/10/17 10:05 Cholesterol Level 235 MG/DL (120-200) HDL Cholesterol 72.3 MG/DL (40.0-60.0) Hemoglobin A1c 5.4 % (4.3-6.0) LDL Cholesterol 148 MG/DL (0-99) Triglycerides Level 73 MG/DL (42-150) Summary of Procedures None done Imaging Last Impressions Head CT 08/09/17 [id number] Signed Impressions: Service Date/Time: Wednesday, August 09, 2017 17:47 - CONCLUSION: Moderate severity atrophy. No acute findings. Panchito Demarco MD Pending results at discharge: No Medications # of Antipsychotic meds at D/C: 0 Approp Antipsych med options 1 - Minimum of three failed multiple trials of monotherapy. 2 - Documented plan to taper to monotherapy due to previous use of multiple meds OR cross-taper in progress at D/C. 3 - Documentation of augmentation of Clozapine. 4 - Justification other than those listed in allowable values 1-3, document here : Discharge Discharge Date: Aug 22, 2017 Discharge Diagnosis: (1) ALZHEIMER'S DISEASE WITH LATE ONSET Diagnosis: Principal ICD Code: G30.1 - ALZHEIMER'S DISEASE WITH LATE ONSET (2) DEMENTIA IN OTH DISEASES CLASSD ELSWHR W BEHAVIORAL DISTURB Diagnosis: Principal ICD Code: F02.81 - DEMENTIA IN OTH DISEASES CLASSD ELSWHR W BEHAVIORAL DISTURB Pt Condition on Discharge: Stable Discharge Disposition: Discharge to SNF Discharge Instructions Diet Instructions: As Tolerated, No Restrictions Activities you can perform: Regular-No Restrictions Scheduled Appointment: [facility] Discharge Time > 30 minutes Mental Status Examination Appearance: Appropriate Consciousness: Alert Orientation: Person (to person only), Place Motor Activity: Normal gait Speech: Other (difficulty with word finding) Language: Other (diminished capacity ) Fund of Knowledge: Poor Attention and Concentration: Easily Distracted Memory: Impaired Mood: Appropriate Affect: Anxious Thought Process & Associations: Disorganized Thought Content: Appropriate Hallucination Type: Visual (denies today) Delusion Type: None Suicidal Ideation: No Suicidal Plan: No Suicidal Intention: No Homicidal Ideation: No Homicidal Plan: No Homicidal Intention: No Insight: Poor Judgment: Poor Discharge/Advance Care Plan Health Problems: (1) ALZHEIMER'S DISEASE WITH LATE ONSET (2) DEMENTIA IN OTH DISEASES CLASSD ELSWHR W BEHAVIORAL DISTURB Goals to promote your health * To prevent worsening of your condition and complications * To maintain your health at the optimal level Directions to meet your goals Take your medications as prescribed Follow your dietary instruction Follow activity as directed Keep your appointments as scheduled Take your immunizations and boosters as scheduled If your symptoms worsen call your PCP, if no PCP go to Urgent Care Center or Emergency Room For 02/05 questions related to your inpatient stay or results of tests pending at discharge, please contact Dr. Idris Michel at Smoking is Dangerous to Your Health. Avoid second hand smoking Idris Michel MD Aug 22, 2017 09:23
== END 2017-08-22 14:25 | DRG 57 ==
LOC: NEPD 17:00 → NEDA 23:00 → H260 08-10 00:40
PROVIDERS: ADMIT Psychiatry & Neurology Psychiatry; ATTEND Psychiatry & Neurology Psychiatry
DX: G30.1 Alzheimer's disease with late onset (principal); N17.9 Acute kidney failure, unspecified; F02.81 Dementia in other diseases classified elsewhere, unspecified severity, with behavioral disturbance; I10 Essential (primary) hypertension; E78.5 Hyperlipidemia, unspecified; R44.1 Visual hallucinations
CPT/HCPCS: 70450; 80048; 80061; 80076; 80307; 81001; 82306; 82607; 83036; 84443; 84484; 85025; 85610; 85730; 93005

== ENCOUNTER 2018-08-13 00:09 | Inpatient (IN) ==
--- NOTE | 2018-08-13 00:51 | XR ---
EXAM DATE: 08/13/2018 12:42 AM EDT AGE/SEX: 73 years / Male INDICATIONS: Shortness of breath. CLINICAL DATA: This is the patient's initial encounter. Patient reports that signs and symptoms have been present for 1 day and indicates a pain score of Nonresponsive. MEDICAL/SURGICAL HISTORY: Dementia. Hypertension. Afib Non-responsive. COMPARISON: No prior exams available for comparison. FINDINGS: A single AP view of the chest demonstrates the lungs to be symmetrically aerated without evidence of mass, infiltrate or effusion. The cardiomediastinal contours are unremarkable. Osseous structures a re intact. CONCLUSION: No acute disease Electronically signed by: Idris Flores MD 08/13/2018 12:50 AM EDT
[2018-08-13] MEDS ORDERED: Sodium Chlor 0.9% Inj 500 ML IV.SIG SCH (01:00)
[2018-08-13 01:06] LABS: Baso % (Auto) 0.3 % (0.0-2.0); Eos % (Auto) 0.3 % (0.0-4.0); Hematocrit 32.8 % (39.0-51.0); Hemoglobin 11.1 gm/dL (13.0-17.0); Lymph # (Auto) 0.6 th/mm3 (1.0-4.8); Lymph % (Auto) 8.9 % (9.0-44.0); Mean Corpuscular HGB Conc 33.7 % (32.0-36.0); Mean Corpuscular Hemoglobin 32.9 pg (27.0-34.0); Mean Corpuscular Volume 97.4 fL (80.0-100.0); Mono # (Auto) 0.6 th/mm3 (0.0-0.9); Mono % (Auto) 8.9 % (0.0-8.0); Neut # (Auto) 5.6 th/mm3 (1.8-7.7); Neut % (Auto) 81.6 % (16.0-70.0); Platelet Count 135 th/mm3 (150-450); Red Blood Count 3.37 mil/mm3 (4.50-5.90); Red Cell Distribution Width 13.5 % (11.6-17.2); White Blood Count 6.8 th/mm3 (4.0-11.0)
[2018-08-13 01:13] LABS: INR 1.2 Ratio; Prothrombin Time 11.7 sec (9.8-11.6)
[2018-08-13 01:18] LABS: Alanine Aminotransferase 32 U/L (12-78); Albumin 2.5 g/dL (3.4-5.0); Anion Gap 9 meq/L (5-15); Aspartate Aminotransferase 48 U/L (15-37); Blood Urea Nitrogen 48 mg/dL (7-18); Calcium 8.2 mg/dL (8.5-10.1); Carbon Dioxide 28.1 meq/L (21.0-32.0); Chloride 109 meq/L (98-107); Glomerular Filtration Rate 37 mL/min (>89); Glucose,Random 143 mg/dL (74-106); Magnesium 1.9 mg/dL (1.5-2.5); Potassium 3.8 meq/L (3.5-5.1); Sodium 146 meq/L (136-145)
[2018-08-13 01:28] LABS: Alkaline Phosphatase 71 U/L (45-117); Creatine Kinase 812 U/L (39-308); Total Protein 6.4 g/dL (6.4-8.2); Troponin I 0.05 ng/mL (0.02-0.05)
--- NOTE | 2018-08-13 01:31 | CT ---
EXAM DATE: 08/13/2018 1:22 AM EST AGE/SEX: 73 years / Male INDICATIONS: Altered mental status. CLINICAL DATA: This is the patient's initial encounter. Patient reports that signs and symptoms have been present for 1 day and indicates a pain score of Nonresponsive. MEDICAL/SURGICAL HISTORY: Dementia. Hypertension. Non-responsive. RADIATION DOSE: 43.13 CTDI (mGy) [place] [facility] [place]. . TECHNIQUE: CT of the head without contrast. Using automated exposure control and adjustment of the mA and/or kV according to patient size, radiation dose was kept as low as reasonably achievable to ob tain optimal diagnostic quality images. DICOM format image data is available electronically for revi ew and comparison. FINDINGS: Cerebrum: The ventricles are normal for age. No evidence of midline shift, mass lesion, hemorrhage or acute infarction. No extraaxial fluid collections are seen. Posterior Fossa: The cerebellum and brainstem are intact. The 4th ventricle is midline. The cerebe llopontine angle is unremarkable. Extracranial: The visualized portion of the orbits is intact. Skull: The calvaria is intact. No evidence of skull fracture. CONCLUSION: Negative CT Head non contrast. . Electronically signed by: Idris Flores MD 08/13/2018 1:29 AM EST
[2018-08-13 01:38] LABS: Bacteria,Urine Occasional /hpf; Bilirubin,Urine Negative (Negative); Clarity,Urine Cloudy (Clear); Color,Urine Yellow (Yellw/Straw); Glucose,Urine (UA) Negative (Negative); Leukocyte Esterase,Urine Large (Negative); Mucus,Urine Few /lpf (Occasional); Nitrite,Urine Negative (Negative); Renal Epithelial Cells,Urine 1 /hpf; Specific Gravity,Urine 1.017 (1.002-1.035); Transitional Epi Cells,Urine <1 /hpf; Urobilinogen,Urine 4 or Greater mg/dL (Less than 2)
[2018-08-13 01:41] LABS: CKMB Percent 1.5 % (0.0-4.0); Creatine Kinase MB 12.1 ng/mL (0.5-3.6)
--- NOTE | 2018-08-13 02:26 | ED ---
HPI General Chief Complaint: Fall Stated Complaint: Medical Time Seen by Provider: 08/13/18 00:17 Source: EMS Mode of arrival: EMS Limitations: altered mental status History of Present Illness HPI narrative: 73-year-old male was brought to the emergency room by EMS after he was found in the outside courtyard of his dementia unit. He was found by the Cook of the unit. There was dirt under his nails and right subconjunctival hemorrhage was noticed. Patient was acting bizarre and not his baseline mental status. She called 911. Upon EMS arrival patient was oriented x1 which again is not his baseline as per the Cook. Vital signs were stable otherwise. Patient spoke minimally during the transportation. Upon arrival he did not look like he was in pain. Upon asking 2-3 times he mentioned his name but would not answer any further. He looked confused. He does have history of dementia. There is no family member with him. Patient's blood glucose as per overhead foreman was 108. Onset (ago): unknown Severity: mild Related Data Home Medications Medication Instructions Recorded Confirmed divalproex 125 mg PO BID 06/23/18 08/13/18 lisinopril 10 mg PO DAILY 06/23/18 08/13/18 melatonin 4 mg PO HS PRN 06/23/18 08/13/18 memantine 10 mg PO BID 06/23/18 08/13/18 metoprolol tartrate 25 mg PO BID 06/23/18 08/13/18 risperidone [Risperdal] 0.5 mg PO BID 06/23/18 08/13/18 sertraline 150 mg PO HS 06/23/18 08/13/18 trazodone 75 mg PO HS 06/23/18 08/13/18 Allergies Allergy/AdvReac Type Severity Reaction Status Date / Time No Known Allergies Allergy Unverified 08/09/17 17:17 Review of Systems ROS Unobtainable ROS Unobtainable: unobtainable due to mental condition, unobtainable due to mental status and other (His daughter is giving the history.) ROS: all other systems reviewed are negative [facility] Medical History Medical History Afib (Acute) Dementia (Acute) HTN (hypertension) (Acute) Social History Social History Substance History: No History of Abuse Second Hand Smoke Exposure: No Smoking Status: Cognitive impairment How Often Do You Have a Drink Containing Alcohol: Unable to Obtain Recent Travel in [facility] within the Last 8 Weeks: No Recent Out of Country Travel within the Last 8 Weeks: No Immunization History Tetanus Immunization: Unsure Exam Narrative Exam Narrative: GENERAL: Awake, alert, elderly, mild distress, confused SKIN: Focused skin assessment warm/dry. HEAD: Atraumatic. Normocephalic. EYES: Pupils equal and round. No scleral icterus. No injection or drainage. Subconjunctival hemorrhage ENT: No nasal bleeding or discharge. Mucous membranes pink and moist. NECK: Trachea midline. No JVD. CARDIOVASCULAR: Regular rate and rhythm. No murmur appreciated. RESPIRATORY: No accessory muscle use. Clear to auscultation. Breath sounds equal bilaterally. GASTROINTESTINAL: Abdomen soft, non-tender, nondistended. Hepatic and splenic margins not palpable. MUSCULOSKELETAL: No obvious deformities. No clubbing. No cyanosis. No edema. NEUROLOGICAL: Confused, minimal verbal response, GCS of 13. No obvious cranial nerve deficits. Motor grossly within normal limits. Normal speech. PSYCHIATRIC: Appropriate mood and affect; insight and judgment normal. Course Initial Documented Vital Signs Pulse Oximetry 94 L 08/13/18 00:23 Last Documented Vital Signs Temperature 97.3 F L 08/17/18 11:46 Pulse Rate 88 08/17/18 11:46 Respiratory Rate 19 08/17/18 11:46 Blood Pressure 164/95 H 08/17/18 11:46 Pulse Oximetry 96 08/17/18 11:46 Medical Decision Making [facility] Narrative Medical decision making narrative: 2:41 AM blood test results are back and suggestive of UTI. Patient also seems to have mild hyponatremic dehydration. CT scan and chest x-ray was read by the radiologist to be negative. Patient has received 500 mL's of IV fluid bolus initially. I ordered lactic acid, blood culture and IV Rocephin for the UTI. I just discussed the case with the hospitalist and he has accepted the patient. Patient's current CODE STATUS is unknown. The nurse tried to call the family and was unable to get any response. Medical Screen Exam Complete: Yes Emergency Medical Condition: Yes Lab Data Result diagrams: 08/14/18 06:25 08/15/18 08:05 Lab Results 08/13/18 08/13/18 08/13/18 Range/Units 00:25 00:25 00:25 WBC 6.8 (4.0-11.0) th/mm3 RBC 3.37 L (4.50-5.90) mil/mm3 Hgb 11.1 L (13.0-17.0) gm/dL Hct 32.8 L (39.0-51.0) % MCV 97.4 (80.0-100.0) fL MCH 32.9 (27.0-34.0) pg MCHC 33.7 (32.0-36.0) % RDW 13.5 (11.6-17.2) % Plt Count 135 L (150-450) th/mm3 MPV 10.0 (7.0-11.0) fL Neut % (Auto) 81.6 H (16.0-70.0) % Lymph % (Auto) 8.9 L (9.0-44.0) % [place] % (Auto) 8.9 H (0.0-8.0) % Eos % (Auto) 0.3 (0.0-4.0) % Baso % (Auto) 0.3 (0.0-2.0) % Neut # (Auto) 5.6 (1.8-7.7) th/mm3 Lymph # (Auto) 0.6 L (1.0-4.8) th/mm3 [place] # (Auto) 0.6 (0.0-0.9) th/mm3 Eos # (Auto) 0.0 (0.0-0.4) th/mm3 Baso # (Auto) 0.0 (0.0-0.2) th/mm3 WBC Differential . Differential Comment Auto diff final PT 11.7 H (9.8-11.6) sec INR 1.2 Ratio Sodium 146 H (136-145) meq/L Potassium 3.8 (3.5-5.1) meq/L Chloride 109 H (98-107) meq/L Carbon Dioxide 28.1 (21.0-32.0) meq/L Anion Gap 9 (5-15) meq/L BUN 48 H (7-18) mg/dL Creatinine 1.80 H (0.60-1.30) mg/dL Estimated GFR 37 L (>89) mL/min Random Glucose 143 H (74-106) mg/dL Lactic Acid (0.4-2.0) mmol/L Calcium 8.2 L (8.5-10.1) mg/dL Magnesium 1.9 (1.5-2.5) mg/dL Total Bilirubin 0.5 (0.2-1.0) mg/dL AST 48 H (15-37) U/L ALT 32 (12-78) U/L Alkaline Phosphatase 71 (45-117) U/L Ammonia (11-32) mcmol/L Total Creatine Kinase 812 H (39-308) U/L CK-MB (CK-2) 12.1 H (0.5-3.6) ng/mL CK-MB (CK-2) % 1.5 (0.0-4.0) % Troponin I 0.05 (0.02-0.05) ng/mL Total Protein 6.4 (6.4-8.2) g/dL Albumin 2.5 L (3.4-5.0) g/dL TSH 1.370 (0.358-3.740) uIU/mL Urine Color (Yellw/Straw) Urine Clarity (Clear) Urine pH (5.0-8.5) Ur Specific [place] (1.002-1.035) Urine Protein (Neg-Trace) mg/dL Urine Glucose (UA) (Negative) mg/dL Urine Ketones (Negative) mg/dL Urine Occult Blood (Negative) Urine Nitrate (Negative) Urine Bilirubin (Negative) Urine Urobilinogen (Less than 2) mg/dL Ur Leukocyte Esterase (Negative) Urine RBC (0-3) /hpf Urine WBC (0-5) /hpf Urine WBC Clumps (None) Ur Transition Epith Cell (None) /hpf Ur Renal Epithelial Cell (None) /hpf Urine Bacteria (None) /hpf Urine Mucus (Occasional) /lpf Micro UA Comment Ur Microscopic Review Urine Culture Comments 08/13/18 08/13/18 08/13/18 Range/Units 00:25 01:13 EST 02:55 WBC (4.0-11.0) th/mm3 RBC (4.50-5.90) mil/mm3 Hgb (13.0-17.0) gm/dL Hct (39.0-51.0) % MCV (80.0-100.0) fL MCH (27.0-34.0) pg MCHC (32.0-36.0) % RDW (11.6-17.2) % Plt Count (150-450) th/mm3 MPV (7.0-11.0) fL Neut % (Auto) (16.0-70.0) % Lymph % (Auto) (9.0-44.0) % [place] % (Auto) (0.0-8.0) % Eos % (Auto) (0.0-4.0) % Baso % (Auto) (0.0-2.0) % Neut # (Auto) (1.8-7.7) th/mm3 Lymph # (Auto) (1.0-4.8) th/mm3 [place] # (Auto) (0.0-0.9) th/mm3 Eos # (Auto) (0.0-0.4) th/mm3 Baso # (Auto) (0.0-0.2) th/mm3 WBC Differential Differential Comment PT (9.8-11.6) sec INR Ratio Sodium (136-145) meq/L Potassium (3.5-5.1) meq/L Chloride (98-107) meq/L Carbon Dioxide (21.0-32.0) meq/L Anion Gap (5-15) meq/L BUN (7-18) mg/dL Creatinine (0.60-1.30) mg/dL Estimated GFR (>89) mL/min Random Glucose (74-106) mg/dL Lactic Acid 0.8 (0.4-2.0) mmol/L Calcium (8.5-10.1) mg/dL Magnesium (1.5-2.5) mg/dL Total Bilirubin (0.2-1.0) mg/dL AST (15-37) U/L ALT (12-78) U/L Alkaline Phosphatase (45-117) U/L Ammonia 14 (11-32) mcmol/L Total Creatine Kinase (39-308) U/L CK-MB (CK-2) (0.5-3.6) ng/mL CK-MB (CK-2) % (0.0-4.0) % Troponin I (0.02-0.05) ng/mL Total Protein (6.4-8.2) g/dL Albumin (3.4-5.0) g/dL TSH (0.358-3.740) uIU/mL Urine Color Yellow (Yellw/Straw) Urine Clarity Cloudy H (Clear) Urine pH 6.0 (5.0-8.5) Ur Specific [place] 1.017 (1.002-1.035) Urine Protein 100 H (Neg-Trace) mg/dL Urine Glucose (UA) Negative (Negative) mg/dL Urine Ketones Negative (Negative) mg/dL Urine Occult Blood Moderate H (Negative) Urine Nitrate Negative (Negative) Urine Bilirubin Negative (Negative) Urine Urobilinogen 4 or greater (Less than 2) mg/dL Ur Leukocyte Esterase Large H (Negative) Urine RBC 5 H (0-3) /hpf Urine WBC (0-5) /hpf Urine WBC Clumps Many H (None) Ur Transition Epith Cell <1 (None) /hpf Ur Renal Epithelial Cell 1 (None) /hpf Urine Bacteria Occasional H (None) /hpf Urine Mucus Few H (Occasional) /lpf Micro UA Comment Cath-culture ind Ur Microscopic Review Not Reportable Urine Culture Comments Cath-cult indicated 08/13/18 08/13/18 08/14/18 Range/Units 05:55 12:47 06:25 WBC 9.4 (4.0-11.0) th/mm3 RBC 3.39 L (4.50-5.90) mil/mm3 Hgb 11.2 L (13.0-17.0) gm/dL Hct 33.2 L (39.0-51.0) % MCV 98.0 (80.0-100.0) fL MCH 33.1 (27.0-34.0) pg MCHC 33.8 (32.0-36.0) % RDW 13.8 (11.6-17.2) % Plt Count 139 L (150-450) th/mm3 MPV 9.6 (7.0-11.0) fL Neut % (Auto) 83.1 H (16.0-70.0) % Lymph % (Auto) 8.4 L (9.0-44.0) % [place] % (Auto) 8.0 (0.0-8.0) % Eos % (Auto) 0.3 (0.0-4.0) % Baso % (Auto) 0.2 (0.0-2.0) % Neut # (Auto) 7.8 H (1.8-7.7) th/mm3 Lymph # (Auto) 0.8 L (1.0-4.8) th/mm3 [place] # (Auto) 0.7 (0.0-0.9) th/mm3 Eos # (Auto) 0.0 (0.0-0.4) th/mm3 Baso # (Auto) 0.0 (0.0-0.2) th/mm3 WBC Differential . Differential Comment Auto diff final PT (9.8-11.6) sec INR Ratio Sodium (136-145) meq/L Potassium (3.5-5.1) meq/L Chloride (98-107) meq/L Carbon Dioxide (21.0-32.0) meq/L Anion Gap (5-15) meq/L BUN (7-18) mg/dL Creatinine (0.60-1.30) mg/dL Estimated GFR (>89) mL/min Random Glucose (74-106) mg/dL Lactic Acid (0.4-2.0) mmol/L Calcium (8.5-10.1) mg/dL Magnesium (1.5-2.5) mg/dL Total Bilirubin (0.2-1.0) mg/dL AST (15-37) U/L ALT (12-78) U/L Alkaline Phosphatase (45-117) U/L Ammonia (11-32) mcmol/L Total Creatine Kinase 802 H (39-308) U/L CK-MB (CK-2) 7.7 H (0.5-3.6) ng/mL CK-MB (CK-2) % 1.0 (0.0-4.0) % Troponin I 0.04 0.03 (0.02-0.05) ng/mL Total Protein (6.4-8.2) g/dL Albumin (3.4-5.0) g/dL TSH (0.358-3.740) uIU/mL Urine Color (Yellw/Straw) Urine Clarity (Clear) Urine pH (5.0-8.5) Ur Specific [place] (1.002-1.035) Urine Protein (Neg-Trace) mg/dL Urine Glucose (UA) (Negative) mg/dL Urine Ketones (Negative) mg/dL Urine Occult Blood (Negative) Urine Nitrate (Negative) Urine Bilirubin (Negative) Urine Urobilinogen (Less than 2) mg/dL Ur Leukocyte Esterase (Negative) Urine RBC (0-3) /hpf Urine WBC (0-5) /hpf Urine WBC Clumps (None) Ur Transition Epith Cell (None) /hpf Ur Renal Epithelial Cell (None) /hpf Urine Bacteria (None) /hpf Urine Mucus (Occasional) /lpf Micro UA Comment Ur Microscopic Review Urine Culture Comments 08/14/18 08/15/18 Range/Units 06:25 08:05 WBC (4.0-11.0) th/mm3 RBC (4.50-5.90) mil/mm3 Hgb (13.0-17.0) gm/dL Hct (39.0-51.0) % MCV (80.0-100.0) fL MCH (27.0-34.0) pg MCHC (32.0-36.0) % RDW (11.6-17.2) % Plt Count (150-450) th/mm3 MPV (7.0-11.0) fL Neut % (Auto) (16.0-70.0) % Lymph % (Auto) (9.0-44.0) % [place] % (Auto) (0.0-8.0) % Eos % (Auto) (0.0-4.0) % Baso % (Auto) (0.0-2.0) % Neut # (Auto) (1.8-7.7) th/mm3 Lymph # (Auto) (1.0-4.8) th/mm3 [place] # (Auto) (0.0-0.9) th/mm3 Eos # (Auto) (0.0-0.4) th/mm3 Baso # (Auto) (0.0-0.2) th/mm3 WBC Differential Differential Comment PT (9.8-11.6) sec INR Ratio Sodium 143 144 (136-145) meq/L Potassium 3.7 3.3 L (3.5-5.1) meq/L Chloride 107 108 H (98-107) meq/L Carbon Dioxide 26.8 26.3 (21.0-32.0) meq/L Anion Gap 9 10 (5-15) meq/L BUN 38 H 33 H (7-18) mg/dL Creatinine 1.22 1.12 (0.60-1.30) mg/dL Estimated GFR 58 L 64 L (>89) mL/min Random Glucose 89 95 (74-106) mg/dL Lactic Acid (0.4-2.0) mmol/L Calcium 8.1 L 7.9 L (8.5-10.1) mg/dL Magnesium (1.5-2.5) mg/dL Total Bilirubin (0.2-1.0) mg/dL AST (15-37) U/L ALT (12-78) U/L Alkaline Phosphatase (45-117) U/L Ammonia (11-32) mcmol/L Total Creatine Kinase 743 H (39-308) U/L CK-MB (CK-2) 2.2 (0.5-3.6) ng/mL CK-MB (CK-2) % 0.3 (0.0-4.0) % Troponin I (0.02-0.05) ng/mL Total Protein (6.4-8.2) g/dL Albumin (3.4-5.0) g/dL TSH (0.358-3.740) uIU/mL Urine Color (Yellw/Straw) Urine Clarity (Clear) Urine pH (5.0-8.5) Ur Specific [place] (1.002-1.035) Urine Protein (Neg-Trace) mg/dL Urine Glucose (UA) (Negative) mg/dL Urine Ketones (Negative) mg/dL Urine Occult Blood (Negative) Urine Nitrate (Negative) Urine Bilirubin (Negative) Urine Urobilinogen (Less than 2) mg/dL Ur Leukocyte Esterase (Negative) Urine RBC (0-3) /hpf Urine WBC (0-5) /hpf Urine WBC Clumps (None) Ur Transition Epith Cell (None) /hpf Ur Renal Epithelial Cell (None) /hpf Urine Bacteria (None) /hpf Urine Mucus (Occasional) /lpf Micro UA Comment Ur Microscopic Review Urine Culture Comments Imaging Data Radiologist's impression: Abdomen/Bladder Ultrasound 08/13/18 00:00 CONCLUSION: 1. Small bladder stones. 2. Moderate right hydronephrosis Abdomen/Pelvis CT 08/13/18 00:00 CONCLUSION: 1. Large right ureterovesical junction stone causing moderate severity obstructive uropathy including perinephric edema. There is a smaller stone a couple centimeters above the UVJ. Both of these stones can be seen on the initial benzene still utility operator radiograph. 2. Scattered 3 mm or less bilateral nonobstructing renal stones. 3. Large bladder calculus. 4. Enlarged liver with mild fatty infiltration. 5. Moderate stool throughout the colon. Sigmoid colon diverticulosis without diverticulitis. 6. Mild bilateral atelectasis and very small right pleural effusion of the visualized lung bases. Chest X-Ray 08/13/18 00:17 CONCLUSION: No acute disease Head CT 08/13/18 00:17 CONCLUSION: Negative CT Head non contrast. . ECG Data Attestation: I personally reviewed and interpreted this ECG as follows: Interpretation: Twelve-lead EKG was reviewed by me. Atrial fibrillation, left axis deviation, interventricular conduction delay, PVC. Heart rate of 92 bpm. Discharge Plan Discharge Disposition Patient Disposition: 30 Still Patient Discharge Condition Condition: Fair Discharge Order Discharge Orders: Discharge Order (Routine); Ordered 08/17/18 Ordered By: Alessandra Todd Physicians Team ED Provider: Sukhjinder Badillo Primary Care Provider: Primary Care Lalitha Rodriguez Attending Provider: Alessandra Todd Other Providers: Daniel Hinton Status ED Status: Left Department Discharge Information Discharge Date/Time: 08/13/18 04:25
[2018-08-13] MEDS ORDERED: Bisacodyl 10 MG Supp RECTAL PRN (02:41)
[2018-08-13] MEDS ORDERED: Sod Chloride 0.9% Inj 1,000 ML IV.CONT SCH (02:45)
--- NOTE | 2018-08-13 04:10 | US ---
EXAM DATE: 08/13/2018 4:00 AM EST AGE/SEX: 73 years / Male INDICATIONS: Elevated BUN and creatinine. CLINICAL DATA: This is the patient's initial encounter. Patient reports that signs and symptoms have been present for 1 day and indicates a pain score of Nonresponsive. MEDICAL/SURGICAL HISTORY: . Hypertension. Atrial fibrillation. Dementia. . Unknown. COMPARISON: . MEASUREMENTS: Right Kidney:__10.6 x 6.2 x 6.0 cm Left Kidney:__10.2 x 5.5 x 5.0 cm FINDINGS: Right Kidney: Moderate hydronephrosis. Left Kidney: Normal echotexture and cortical thickness. No mass or hydronephrosis. Bladder: At least 2 dependent bladder stones measuring 18 and 15 mm respectively. Other: None. CONCLUSION: 1. Small bladder stones. 2. Moderate right hydronephrosis Electronically signed by: Idris Flores MD 08/13/2018 4:08 AM EST
--- NOTE | 2018-08-13 05:04 | P.HPIM ---
History of Present Illness Primary Care Physician: No Primary Care Physician History of Present Illness: 73-year-old male with a history of Alzheimer's dementia, hypertension who was found outside the Courtyard at his dementia unit, with dirt found under his nails and with a right subconjunctival hemorrhage. History is obtained from chart review and discussion with ER doctor. Patient denies any pain, however does not elicit any other useful history. Patient acting bizarre and not at baseline. Inpatient Certification: I certify that the inpatient services were ordered in accordance with Medicare regulations governing the order. This includes certification that hospital inpatient services are reasonable and necessary and in the case of services not specified as inpatient-only under 42 CFR 419.22(n), that they are appropriately provided as inpatient services in accordance to with the 2-midnight benchmark under 43 CFR 412.3(e) Estimated Total Length of Stay (Days): 3 Plans for Post Hospital Care: Not yet determined Review of Systems All other systems reviewed negative except as stated in HPI PMFSH - History History Provided By: Medical Record, Screenplay Writer / EMT - Medical / Surgical Hx Neg / Unobtainable Surgical History: No Previous Surgery - Medical History Medical History: Medical History (Last Reviewed 08/13/18 @ 02:31 by Sukhjinder Badillo MD) Afib Dementia HTN (hypertension) - Family History Family History: Family History (Last Updated 08/13/18 @ 04:55 by Ramesh Jacques MD) Other Family history unobtainable Family history unobtainable due to patient's condition - Social History I have reviewed the patient's Social History: Yes - Tobacco History Second Hand Smoke Exposure: No Smoking Status: Unknown if ever smoked - Alcohol History How Often Do You Have a Drink Containing Alcohol: Never - Substance Use History Substance History: No History of Abuse - Travel History Recent Travel in the [place] Within the Last 8 Weeks: No Recent Travel Out of the Country Within the Last 8 Weeks: No - Immunization History Tetanus Immunization: Unsure Medications and Allergies Active Medications: Active Medications Al Hydroxide/Mg Hydroxide (Milk Of Magnesia Liq) 30 ml PO Q12H PRN PRN Reason: Mild Constipation Bisacodyl (Dulcolax Supp) 10 mg RECTAL DAILY PRN PRN Reason: SEVERE CONSITIPATION Divalproex Sodium (Depakote Dr) 125 mg PO BID J[facility]I Ceftriaxone Sodium 1,000 mg/ (Sodium Chloride) 100 mls @ 200 mls/hr IV.SIG Q24H JORI Sodium Chloride (Ns Inj) 1,000 mls @ 100 mls/hr IV.CONT .Q10H [facility] Last Admin: 08/13/18 04:39 Dose: 100 mls/hr Lactulose (Lactulose Liq) 30 ml PO DAILY PRN PRN Reason: SEVERE CONSITIPATION Risperidone (Risperdal) 0.5 mg PO BID [facility] Sennosides (Senokot) 17.2 mg PO Q12H PRN PRN Reason: Moderate Constipation Sodium Chloride (Ns Flush) 2 ml IV.FLUSH PRN PRN PRN Reason: FLUSH AFTER USING IV ACCESS Trazodone HCl (Desyrel) 75 mg PO [facility] Allergies Allergy/AdvReac Type Severity Reaction Status Date / Time No Known Allergies Allergy Unverified 08/09/17 17:17 Home Medications Medication Instructions Recorded Confirmed Type divalproex 125 mg PO BID 06/23/18 08/13/18 History lisinopril 10 mg PO DAILY 06/23/18 08/13/18 History melatonin 4 mg PO HS PRN 06/23/18 08/13/18 History memantine 10 mg PO BID 06/23/18 08/13/18 History metoprolol tartrate 25 mg PO BID 06/23/18 08/13/18 History risperidone [Risperdal] 0.5 mg PO BID 06/23/18 08/13/18 History sertraline 150 mg PO HS 06/23/18 08/13/18 History trazodone 75 mg PO HS 06/23/18 08/13/18 History Exam Vital signs: Vital Signs 08/13/18 00:23 08/13/18 00:45 08/13/18 02:45 Temperature 98.6 F Pulse Rate 87 77 Respiratory Rate 20 16 Blood Pressure 128/73 131/83 Pulse Oximetry 94 L 97 97 Intake & Output 08/12/18 08/12/18 08/13/18 06:59 18:59 05:59 Intake Total 600 / 600 Balance 600 / 600 Weight 79.379 kg Intake: IV 600 / 600 NS Inj 500 ML @ 1000 mls/hr IV. 500 / 500 SIG BOLUS [facility] Rx#:[id number] Rocephin Inj 1,000 MG In NS Inj 100 / 100 100 ML @ 200 mls/hr IV.SIG ONCE ONE Rx#:[id number] Narrative: GENERAL: Patient lying in bed. Sleeping, wakes up for exam. Answers limited questions. SKIN: Warm and dry. HEAD: Atraumatic. Normocephalic. EYES: Pupils equal and round. Patient does have right sided subconjunctival hemorrhage of medial eye. No drainage. ENT: No nasal bleeding or discharge. Mucous membranes pink and moist. NECK: Trachea midline. No JVD. CARDIOVASCULAR: Regular rate and rhythm. RESPIRATORY: No accessory muscle use. Clear to auscultation. Breath sounds equal bilaterally. GASTROINTESTINAL: Abdomen soft, non-tender, nondistended. Hepatic and splenic margins not palpable. MUSCULOSKELETAL: Extremities without clubbing, cyanosis, or edema. No obvious deformities. NEUROLOGICAL: Awake and alert. No obvious cranial nerve deficits. Motor grossly within normal limits. Patient does not comply with exam, however is observed to move all extremities spontaneously. slow speech. PSYCHIATRIC: Appropriate mood and affect; insight and judgment normal. Results - Labs CBC & Chem 7: 08/13/18 00:25 08/13/18 00:25 Labs: Short CBC 08/13/18 Range/Units 00:25 WBC 6.8 (4.0-11.0) th/mm3 Hgb 11.1 L (13.0-17.0) gm/dL Hct 32.8 L (39.0-51.0) % Plt Count 135 L (150-450) th/mm3 BMP 08/13/18 00:25 Sodium 146 H Potassium 3.8 Chloride 109 H Carbon Dioxide 28.1 BUN 48 H Creatinine 1.80 H Calcium 8.2 L Cardiac Enzymes 08/13/18 Range/Units 00:25 Total Creatine Kinase 812 H (39-308) U/L CK-MB (CK-2) 12.1 H (0.5-3.6) ng/mL Troponin I 0.05 (0.02-0.05) ng/mL Liver Function 08/13/18 Range/Units 00:25 Total Bilirubin 0.5 (0.2-1.0) mg/dL AST 48 H (15-37) U/L ALT 32 (12-78) U/L Alkaline Phosphatase 71 (45-117) U/L Albumin 2.5 L (3.4-5.0) g/dL Urine 08/13/18 Range/Units 01:13 EST Urine Color Yellow (Yellw/Straw) Urine Clarity Cloudy H (Clear) Urine pH 6.0 (5.0-8.5) Ur Specific [place] 1.017 (1.002-1.035) Urine Protein 100 H (Neg-Trace) mg/dL Urine Glucose (UA) Negative (Negative) mg/dL - Imaging Impressions Abdomen/Bladder Ultrasound 08/13/18 00:00 CONCLUSION: 1. Small bladder stones. 2. Moderate right hydronephrosis Chest X-Ray 08/13/18 00:17 CONCLUSION: No acute disease Head CT 08/13/18 00:17 CONCLUSION: Negative CT Head non contrast. . Caprini VTE Risk Assessment Caprini VTE Risk Assessment: Moderate/High Risk (score >= 2) Caprini Risk Assessment Model: Point Value = 1 Point Value = 2 Point Value = 3 Point Value = 5 Age 41-60 Minor surgery BMI > 25 kg/m2 Swollen legs Varicose veins or History of unexplained or recurrent spontaneous Oral contraceptives or hormone replacement Sepsis (< 1 month) Serious lung disease, including pneumonia (< 1 month) Abnormal pulmonary function Acute myocardial infarction Congestive heart failure (< 1 month) History of inflammatory bowel disease Medical patient at bed rest Age 61-74 Arthroscopic surgery Major open surgery (> 45 min) Laparoscopic surgery (> 45 min) Malignancy Confined to bed (> 72 hours) Immobilizing plaster cast Central venous access Age >= 75 History of VTE Family history of VTE Factor V Leiden Prothrombin [id number] Lupus anticoagulant Anticardiolipin antibodies Elevated serum homocysteine Heparin-induced thrombocytopenia Other congenital or acquired thrombophilia Stroke (< 1 month) Elective arthroplasty Hip, pelvis, or leg fracture Acute spinal cord injury (< 1 month) Prophylaxis Regimen: Total Risk Factor Score Risk Level Prophylaxis Regimen 0-1 Low Early ambulation 2 Moderate Order ONE of the following: *Sequential Compression Device (SCD) *Heparin 5000 units SQ BID 3-4 Higher Order ONE of the following medications: *Heparin 5000 units SQ TID *Enoxaparin/Lovenox 40 mg SQ daily (WT < 150 kg, CrCl > 30 mL/min) *Enoxaparin/Lovenox 30 mg SQ daily (WT < 150 kg, CrCl > 10-29 mL/min) *Enoxaparin/Lovenox 30 mg SQ BID (WT < 150 kg, CrCl > 30 mL/min) AND/OR *Sequential Compression Device (SCD) 5 or more Highest Order ONE of the following medications: *Heparin 5000 units SQ TID (Preferred with Epidurals) *Enoxaparin/Lovenox 40 mg SQ daily (WT < 150 kg, CrCl > 30 mL/min) *Enoxaparin/Lovenox 30 mg SQ daily (WT < 150 kg, CrCl > 10-29 mL/min) *Enoxaparin/Lovenox 30 mg SQ BID (WT < 150 kg, CrCl > 30 mL/min) AND *Sequential Compression Device (SCD) Assessment and Plan - Plan //Acute metabolic encephalopathy. //With history of dementia disturbance -CT head on admission negative for acute findings. Likely secondary to UTI below. Continue home medications. //Acute kidney injury. //Acute UTI Urinalysis with innumerable white blood cells, wbc clumps Creatinine 1.8 from normal baseline. Likely secondary to UTI. Will check renal ultrasound to rule out obstructive etiology. //CK elevation. CK in the 800s. Will follow labs. //Hypernatremia. Sodium 146. question lab draw. Will switch to half-normal saline. //Hypertension. Chronic. Discussed Condition With: Patient, nurse, ED physician.
[2018-08-13] MEDS: Sodium Chloride 0.45 % Inj 1,000 ML IV.CONT SCH ×2 (06:30→16:41)
[2018-08-13] MEDS: Divalproex 125 MG DR Tablet PO SCH ×3 (09:38→20:34)
--- NOTE | 2018-08-13 09:41 | P.PNIM ---
Subjective Interval history: f/u; UTI in no acute distress. lethargic but arousable to calling his name. no fever. d/w the RN at the bedside. Physical Exam Vital signs: Vital Signs 08/13/18 00:23 08/13/18 00:45 08/13/18 02:45 Temperature 98.6 F Pulse Rate 87 77 Respiratory Rate 20 16 Blood Pressure 128/73 131/83 Pulse Oximetry 94 L 97 97 08/13/18 04:00 08/13/18 05:00 08/13/18 08:00 Temperature 97.2 F L 98.7 F Pulse Rate 85 84 97 H Respiratory Rate 18 18 Blood Pressure 129/84 133/90 Pulse Oximetry 96 97 Intake & Output 08/12/18 08/13/18 08/13/18 19:59 06:59 18:59 Intake Total Output Total Balance Weight Intake: IV NS Inj 500 ML @ 1000 mls/hr IV. SIG BOLUS J[facility]I Rx#:[id number] Rocephin Inj 1,000 MG In NS Inj 100 ML @ 200 mls/hr IV.SIG ONCE ONE Rx#:[id number] Output: Urine - Constitutional no acute distress - Routine HEENT Exam Eye: Present: conjunctivae pink (right subconjunctival hemorrhage.) - Routine Respiratory Exam Present: CTA bilaterally - Routine Cardiovascular Exam Present: RRR - Routine Abdominal Exam Present: soft - Routine Extremities Exam Comments: no pedal edema. - Routine Neurological Exam lethargic but arousable to calling his name. - Urinary Catheter Management Straight Cath placed during this visit: yes Reason for continuing: Not indwelling catheter Insertion date: 08/13/18 Insertion time: 01:51 Results - Labs CBC & Chem 7: 08/14/18 06:25 08/14/18 06:25 Laboratory Results - last 24 hr 08/13/18 08/13/18 08/13/18 00:25 00:25 00:25 WBC 6.8 RBC 3.37 L Hgb 11.1 L Hct 32.8 L MCV 97.4 MCH 32.9 MCHC 33.7 RDW 13.5 Plt Count 135 L MPV 10.0 Neut % (Auto) 81.6 H Lymph % (Auto) 8.9 L [place] % (Auto) 8.9 H Eos % (Auto) 0.3 Baso % (Auto) 0.3 Neut # (Auto) 5.6 Lymph # (Auto) 0.6 L [place] # (Auto) 0.6 Eos # (Auto) 0.0 Baso # (Auto) 0.0 WBC Differential . Differential Comment Auto diff final PT 11.7 H INR 1.2 Sodium 146 H Potassium 3.8 Chloride 109 H Carbon Dioxide 28.1 Anion Gap 9 BUN 48 H Creatinine 1.80 H Estimated GFR 37 L Random Glucose 143 H Lactic Acid Calcium 8.2 L Magnesium 1.9 Total Bilirubin 0.5 AST 48 H ALT 32 Alkaline Phosphatase 71 Ammonia Total Creatine Kinase 812 H CK-MB (CK-2) 12.1 H CK-MB (CK-2) % 1.5 Troponin I 0.05 Total Protein 6.4 Albumin 2.5 L TSH 1.370 Urine Color Urine Clarity Urine pH Ur Specific [place] Urine Protein Urine Glucose (UA) Urine Ketones Urine Occult Blood Urine Nitrate Urine Bilirubin Urine Urobilinogen Ur Leukocyte Esterase Urine RBC Urine WBC Urine WBC Clumps Ur Transition Epith Cell Ur Renal Epithelial Cell Urine Bacteria Urine Mucus Micro UA Comment Ur Microscopic Review Urine Culture Comments 08/13/18 08/13/18 08/13/18 00:25 01:13 EST 02:55 WBC RBC Hgb Hct MCV MCH MCHC RDW Plt Count MPV Neut % (Auto) Lymph % (Auto) [place] % (Auto) Eos % (Auto) Baso % (Auto) Neut # (Auto) Lymph # (Auto) [place] # (Auto) Eos # (Auto) Baso # (Auto) WBC Differential Differential Comment PT INR Sodium Potassium Chloride Carbon Dioxide Anion Gap BUN Creatinine Estimated GFR Random Glucose Lactic Acid 0.8 Calcium Magnesium Total Bilirubin AST ALT Alkaline Phosphatase Ammonia 14 Total Creatine Kinase CK-MB (CK-2) CK-MB (CK-2) % Troponin I Total Protein Albumin TSH Urine Color Yellow Urine Clarity Cloudy H Urine pH 6.0 Ur Specific [place] 1.017 Urine Protein 100 H Urine Glucose (UA) Negative Urine Ketones Negative Urine Occult Blood Moderate H Urine Nitrate Negative Urine Bilirubin Negative Urine Urobilinogen 4 or greater Ur Leukocyte Esterase Large H Urine RBC 5 H Urine WBC Urine WBC Clumps Many H Ur Transition Epith Cell <1 Ur Renal Epithelial Cell 1 Urine Bacteria Occasional H Urine Mucus Few H Micro UA Comment Cath-culture ind Ur Microscopic Review Not Reportable Urine Culture Comments Cath-cult indicated 08/13/18 05:55 WBC RBC Hgb Hct MCV MCH MCHC RDW Plt Count MPV Neut % (Auto) Lymph % (Auto) [place] % (Auto) Eos % (Auto) Baso % (Auto) Neut # (Auto) Lymph # (Auto) [place] # (Auto) Eos # (Auto) Baso # (Auto) WBC Differential Differential Comment PT INR Sodium Potassium Chloride Carbon Dioxide Anion Gap BUN Creatinine Estimated GFR Random Glucose Lactic Acid Calcium Magnesium Total Bilirubin AST ALT Alkaline Phosphatase Ammonia Total Creatine Kinase CK-MB (CK-2) CK-MB (CK-2) % Troponin I 0.04 Total Protein Albumin TSH Urine Color Urine Clarity Urine pH Ur Specific [place] Urine Protein Urine Glucose (UA) Urine Ketones Urine Occult Blood Urine Nitrate Urine Bilirubin Urine Urobilinogen Ur Leukocyte Esterase Urine RBC Urine WBC Urine WBC Clumps Ur Transition Epith Cell Ur Renal Epithelial Cell Urine Bacteria Urine Mucus Micro UA Comment Ur Microscopic Review Urine Culture Comments - Imaging Impressions Abdomen/Bladder Ultrasound 08/13/18 00:00 CONCLUSION: 1. Small bladder stones. 2. Moderate right hydronephrosis Chest X-Ray 08/13/18 00:17 CONCLUSION: No acute disease Head CT 08/13/18 00:17 CONCLUSION: Negative CT Head non contrast. . Assessment and Plan - Plan Acute metabolic encephalopathy. With history of dementia disturbance -CT head on admission negative for acute findings. Likely secondary to UTI below. Continue home medications. -keep NPO for now till mentation has improved. Acute kidney injury. Acute UTI right-sided hydronephrosis Urinalysis with innumerable white blood cells, wbc clumps Creatinine 1.8 from normal baseline. -continue IV antibiotics and follow the cultures. -continue IV fluid and monitor the renal function. -consult urology CK elevation. CK in the 800s. continue IV fluid and Will follow labs. Hypernatremia. Sodium 146. question lab draw. Will switch to half-normal saline. Hypertension. BP controlled ; will monitor right subconjunctival hemorrhage- will monitor. DVT prophylaxis with SCD's for now- pending urology evaluation. consulted PT.
--- NOTE | 2018-08-13 13:02 | P.CONURO ---
History of Present Illness Service: Consult date: 08/13/18 Requesting Physician: Alessandra Todd Reason for Consult: Right hydronephrosis Primary Care Provider: No Primary Care Physician History of Present Illness: 73-year-old gentleman with history of dementia who is now admitted for altered mental status. During his present hospitalization a renal ultrasound study was performed that demonstrated moderate right hydronephrosis along with 2 small bladder calculi. A urology consult was placed regarding these findings. Patient was a very poor historian. He denied any flank pain. Urinalysis consistent with a urinary tract infection and the patient has already been started on antibiotics with a urine culture pending. Review of Systems unobtainable due to mental condition PMFSH - History History Provided By: Medical Record, Padded Box Sewer / EMT - Medical History Medical History: Medical History (Last Reviewed 08/13/18 @ 02:31 by Sukhjinder Badillo MD) Afib Dementia HTN (hypertension) - Family History Family History: Family History (Last Updated 08/13/18 @ 04:55 by Ramesh Jacques MD) Other Family history unobtainable Family history unobtainable due to patient's condition - Tobacco History Second Hand Smoke Exposure: No Smoking Status: Cognitive impairment - Alcohol History How Often Do You Have a Drink Containing Alcohol: Unable to Obtain - Substance Use History Substance History: No History of Abuse - Travel History Recent Travel in the [place] Within the Last 8 Weeks: No Recent Travel Out of the Country Within the Last 8 Weeks: No - Immunization History Tetanus Immunization: Unsure Medications and Allergies Active Medications: Active Medications Al Hydroxide/Mg Hydroxide (Milk Of Magnesia Liq) 30 ml PO Q12H PRN PRN Reason: Mild Constipation Bisacodyl (Dulcolax Supp) 10 mg RECTAL DAILY PRN PRN Reason: SEVERE CONSITIPATION Divalproex Sodium (Depakote Dr) 125 mg PO BID [facility] Last Admin: 08/13/18 09:41 Dose: Not Given Ceftriaxone Sodium 1,000 mg/ (Sodium Chloride) 100 mls @ 200 mls/hr IV.SIG Q24H JORI Sodium Chloride (1/2 Normal Saline Inj) 1,000 mls @ 100 mls/hr IV.CONT .Q10H [facility] Last Admin: 08/13/18 06:30 Dose: 100 mls/hr Lactulose (Lactulose Liq) 30 ml PO DAILY PRN PRN Reason: SEVERE CONSITIPATION Risperidone (Risperdal) 0.5 mg PO BID [facility] Last Admin: 08/13/18 09:42 Dose: Not Given Sennosides (Senokot) 17.2 mg PO Q12H PRN PRN Reason: Moderate Constipation Sodium Chloride (Ns Flush) 2 ml IV.FLUSH PRN PRN PRN Reason: FLUSH AFTER USING IV ACCESS Trazodone HCl (Desyrel) 75 mg PO [facility] Allergies Allergy/AdvReac Type Severity Reaction Status Date / Time No Known Allergies Allergy Unverified 08/09/17 17:17 Home Medications Medication Instructions Recorded Confirmed Type divalproex 125 mg PO BID 06/23/18 08/13/18 History lisinopril 10 mg PO DAILY 06/23/18 08/13/18 History melatonin 4 mg PO HS PRN 06/23/18 08/13/18 History memantine 10 mg PO BID 06/23/18 08/13/18 History metoprolol tartrate 25 mg PO BID 06/23/18 08/13/18 History risperidone [Risperdal] 0.5 mg PO BID 06/23/18 08/13/18 History sertraline 150 mg PO HS 06/23/18 08/13/18 History trazodone 75 mg PO HS 06/23/18 08/13/18 History Physical Exam Vital Signs - 24 hr 08/13/18 00:23 08/13/18 00:45 08/13/18 02:45 Temperature 98.6 F Pulse Rate 87 77 Respiratory Rate 20 16 Blood Pressure 128/73 131/83 Pulse Oximetry 94 L 97 97 08/13/18 04:00 08/13/18 05:00 08/13/18 08:00 Temperature 97.2 F L 98.7 F Pulse Rate 85 84 97 H Respiratory Rate 18 18 Blood Pressure 129/84 133/90 Pulse Oximetry 96 97 08/13/18 12:00 08/13/18 12:04 Temperature 99.2 F Pulse Rate 82 Respiratory Rate 18 Blood Pressure 139/76 Pulse Oximetry 96 97 Physical Exam: GENERAL: This is a well-nourished, well-developed patient, in no apparent distress. SKIN: No rashes, ecchymoses or lesions. Cool and dry. HEAD: Atraumatic. Normocephalic. No temporal or scalp tenderness. EYES: Pupils equal round and reactive. Extraocular motions intact. ENT: Nose without bleeding, purulent drainage or septal hematoma. Throat without erythema, tonsillar hypertrophy or exudate. Uvula midline. Airway patent. RESPIRATORY: Clear to auscultation. Breath sounds equal bilaterally. No wheezes , rales, or rhonchi. GASTROINTESTINAL: Abdomen soft, non-tender, nondistended. No hepato-splenomegaly , or palpable masses. No guarding. GENITOURINARY: No CVA tenderness, bladder not distended MUSCULOSKELETAL: Extremities without clubbing, cyanosis, or edema. No joint tenderness, effusion, or edema noted. No calf tenderness. Negative Homans sign bilaterally. NEUROLOGICAL: Awake and alert. Cranial nerves II through XII intact. Motor and sensory grossly within normal limits. Five out of 5 muscle strength in all muscle groups. Normal speech. Laboratory Results - last 24 hr 08/13/18 08/13/18 08/13/18 00:25 00:25 00:25 WBC 6.8 RBC 3.37 L Hgb 11.1 L Hct 32.8 L MCV 97.4 MCH 32.9 MCHC 33.7 RDW 13.5 Plt Count 135 L MPV 10.0 Neut % (Auto) 81.6 H Lymph % (Auto) 8.9 L [place] % (Auto) 8.9 H Eos % (Auto) 0.3 Baso % (Auto) 0.3 Neut # (Auto) 5.6 Lymph # (Auto) 0.6 L [place] # (Auto) 0.6 Eos # (Auto) 0.0 Baso # (Auto) 0.0 WBC Differential . Differential Comment Auto diff final PT 11.7 H INR 1.2 Sodium 146 H Potassium 3.8 Chloride 109 H Carbon Dioxide 28.1 Anion Gap 9 BUN 48 H Creatinine 1.80 H Estimated GFR 37 L Random Glucose 143 H Lactic Acid Calcium 8.2 L Magnesium 1.9 Total Bilirubin 0.5 AST 48 H ALT 32 Alkaline Phosphatase 71 Ammonia Total Creatine Kinase 812 H CK-MB (CK-2) 12.1 H CK-MB (CK-2) % 1.5 Troponin I 0.05 Total Protein 6.4 Albumin 2.5 L TSH 1.370 Urine Color Urine Clarity Urine pH Ur Specific [place] Urine Protein Urine Glucose (UA) Urine Ketones Urine Occult Blood Urine Nitrate Urine Bilirubin Urine Urobilinogen Ur Leukocyte Esterase Urine RBC Urine WBC Urine WBC Clumps Ur Transition Epith Cell Ur Renal Epithelial Cell Urine Bacteria Urine Mucus Micro UA Comment Ur Microscopic Review Urine Culture Comments 08/13/18 08/13/18 08/13/18 00:25 01:13 EST 02:55 WBC RBC Hgb Hct MCV MCH MCHC RDW Plt Count MPV Neut % (Auto) Lymph % (Auto) [place] % (Auto) Eos % (Auto) Baso % (Auto) Neut # (Auto) Lymph # (Auto) [place] # (Auto) Eos # (Auto) Baso # (Auto) WBC Differential Differential Comment PT INR Sodium Potassium Chloride Carbon Dioxide Anion Gap BUN Creatinine Estimated GFR Random Glucose Lactic Acid 0.8 Calcium Magnesium Total Bilirubin AST ALT Alkaline Phosphatase Ammonia 14 Total Creatine Kinase CK-MB (CK-2) CK-MB (CK-2) % Troponin I Total Protein Albumin TSH Urine Color Yellow Urine Clarity Cloudy H Urine pH 6.0 Ur Specific [place] 1.017 Urine Protein 100 H Urine Glucose (UA) Negative Urine Ketones Negative Urine Occult Blood Moderate H Urine Nitrate Negative Urine Bilirubin Negative Urine Urobilinogen 4 or greater Ur Leukocyte Esterase Large H Urine RBC 5 H Urine WBC Urine WBC Clumps Many H Ur Transition Epith Cell <1 Ur Renal Epithelial Cell 1 Urine Bacteria Occasional H Urine Mucus Few H Micro UA Comment Cath-culture ind Ur Microscopic Review Not Reportable Urine Culture Comments Cath-cult indicated 08/13/18 05:55 WBC RBC Hgb Hct MCV MCH MCHC RDW Plt Count MPV Neut % (Auto) Lymph % (Auto) [place] % (Auto) Eos % (Auto) Baso % (Auto) Neut # (Auto) Lymph # (Auto) [place] # (Auto) Eos # (Auto) Baso # (Auto) WBC Differential Differential Comment PT INR Sodium Potassium Chloride Carbon Dioxide Anion Gap BUN Creatinine Estimated GFR Random Glucose Lactic Acid Calcium Magnesium Total Bilirubin AST ALT Alkaline Phosphatase Ammonia Total Creatine Kinase CK-MB (CK-2) CK-MB (CK-2) % Troponin I 0.04 Total Protein Albumin TSH Urine Color Urine Clarity Urine pH Ur Specific [place] Urine Protein Urine Glucose (UA) Urine Ketones Urine Occult Blood Urine Nitrate Urine Bilirubin Urine Urobilinogen Ur Leukocyte Esterase Urine RBC Urine WBC Urine WBC Clumps Ur Transition Epith Cell Ur Renal Epithelial Cell Urine Bacteria Urine Mucus Micro UA Comment Ur Microscopic Review Urine Culture Comments Result Diagrams: 11/04/18 00:25 08/13/18 00:25 Imaging: ITS Impressions Abdomen/Bladder Ultrasound 08/13/18 00:00 CONCLUSION: 1. Small bladder stones. 2. Moderate right hydronephrosis Chest X-Ray 08/13/18 00:17 CONCLUSION: No acute disease Head CT 08/13/18 00:17 CONCLUSION: Negative CT Head non contrast. . Assessment and Plan - Assessment (1) Hydronephrosis of right kidney Code(s): N13.30 - Unspecified hydronephrosis Status: Acute (2) Bladder calculi Code(s): N21.0 - Calculus in bladder Status: Acute (3) UTI (urinary tract infection) Code(s): N39.0 - Urinary tract infection, site not specified Status: Acute - Plan Urologic impression: 1. Right hydronephrosis of indeterminate etiology 2. Multiple bladder calculi 3. Urinary tract infection Recommendations: 1. We will order a CT scan of the abdomen and pelvis to further elucidate the cause of the right hydronephrosis and to better evaluate the bladder calculi. 2. Agree with present antibiotic therapy.
[2018-08-13 13:38] LABS: Troponin I 0.03 ng/mL (0.02-0.05)
[2018-08-13 13:50] LABS: Creatine Kinase MB 7.7 ng/mL (0.5-3.6)
--- NOTE | 2018-08-13 17:27 | CT ---
EXAM DATE: 08/13/2018 5:18 PM EST AGE/SEX: 73 years / Male INDICATIONS: Hydronephrosis CLINICAL DATA: This is the patient's initial encounter. Patient reports that signs and symptoms have been present for 1 day and indicates a pain score of 0/10. MEDICAL/SURGICAL HISTORY: Dementia. Hypertension. Atrial Fibrillation None. RADIATION DOSE: 13.84 CTDI (mGy) COMPARISON: No prior exams available for comparison. TECHNIQUE: Multiple contiguous axial images were obtained through the abdomen. Images were obtained using multiple row detector helical technique. Using automated exposure control and adjustment of the mA and/or kV according to patient size, radiation dose was kept as low as reasonably achievable to o btain optimal diagnostic quality images. DICOM format image data is available electronically for rev iew and comparison. FINDINGS: There is a 6 x 10 x 7 mm stone of the right ureterovesical junction causing moderate hydronephrosis a nd hydroureter as well as swelling and perinephric edema of the right kidney. A couple centimeters up stream of the UVJ is a 4 x 4 x 10 mm stone dependently in the distended right ureter. There is a 13 m m stone posteriorly in the urinary bladder. Bladder wall appears mildly, diffusely thickened. I don't see a mass. Multiple scattered sub-3 mm nonobstructing stones are seen of both kidneys. No ureteral calculus or obstruction on the left. Liver is enlarged and mild fatty infiltrated. Noncontrast appearance of the spleen, pancreas and adre nal glands is within normal limits. No obstruction or acute inflammatory changes are seen of the gastrointestinal tract. Moderate stool t hroughout the colon. There are diverticula of the sigmoid colon. Normal appendix. Tiny right pleural effusion. Mild bibasilar atelectasis. No acute bony abnormality. CONCLUSION: 1. Large right ureterovesical junction stone causing moderate severity obstructive uropathy includin g perinephric edema. There is a smaller stone a couple centimeters above the UVJ. Both of these stone s can be seen on the initial senior cognos developer radiograph. 2. Scattered 3 mm or less bilateral nonobstructing renal stones. 3. Large bladder calculus. 4. Enlarged liver with mild fatty infiltration. 5. Moderate stool throughout the colon. Sigmoid colon diverticulosis without diverticulitis. 6. Mild bilateral atelectasis and very small right pleural effusion of the visualized lung bases. Electronically signed by: Idris Tuttle MD 08/13/2018 5:26 PM EST
[2018-08-13] MEDS: traZODone 50 MG Tablet PO SCH (20:34)
--- NOTE | 2018-08-13 22:35 | ECG ---
Date Performed: 08/13/2018 Time Performed: 09:35:09 PTAGE: 73 years EKG: ATRIAL FIBRILLATION MARKED LEFT AXIS DEVIATION MODERATE INTRAVENTRICULAR CONDUCTION DELAY N ONSPECIFIC T-WAVE ABNORMALITY ABNORMAL ECG PREVIOUS TRACING : 08/13/2018 00.40 Since the previous tracing, no significant change noted DOCTOR: Faheem Gaspar Interpretating Date/Time 08/13/2018 22:33:43
--- NOTE | 2018-08-13 22:49 | ECG ---
Date Performed: 08/13/2018 Time Performed: 00:40:46 PTAGE: 73 years EKG: ATRIAL FIBRILLATION WITH ABERRANT CONDUCTION OR VENTRICULAR PREMATURE COMPLEXES MARKED LEFT AXIS DEVIATION POSSIBLE LEFT VENTRICULAR HYPERTROPHY POSSIBLE SEPTAL MYOCARDIAL INFARCTION ABNORMAL ECG PREVIOUS TRACING : 06/23/2018 20.14 Since the previous tracing, no significant change noted DOCTOR: Faheem Gaspar Interpretating Date/Time 08/13/2018 22:48:09
[2018-08-14] MEDS: Sodium Chloride 0.45 % Inj 1,000 ML IV.CONT SCH ×3 (02:29→22:43)
[2018-08-14 06:45] LABS: Baso % (Auto) 0.2 % (0.0-2.0); Eos % (Auto) 0.3 % (0.0-4.0); Hematocrit 33.2 % (39.0-51.0); Hemoglobin 11.2 gm/dL (13.0-17.0); Lymph # (Auto) 0.8 th/mm3 (1.0-4.8); Lymph % (Auto) 8.4 % (9.0-44.0); Mean Corpuscular HGB Conc 33.8 % (32.0-36.0); Mean Corpuscular Hemoglobin 33.1 pg (27.0-34.0); Mean Platelet Volume 9.6 fL (7.0-11.0); Mono # (Auto) 0.7 th/mm3 (0.0-0.9); Neut # (Auto) 7.8 th/mm3 (1.8-7.7); Neut % (Auto) 83.1 % (16.0-70.0); Platelet Count 139 th/mm3 (150-450); Red Blood Count 3.39 mil/mm3 (4.50-5.90); Red Cell Distribution Width 13.8 % (11.6-17.2); White Blood Count 9.4 th/mm3 (4.0-11.0)
[2018-08-14 07:01] LABS: Calcium 8.1 mg/dL (8.5-10.1); Carbon Dioxide 26.8 meq/L (21.0-32.0); Potassium 3.7 meq/L (3.5-5.1)
[2018-08-14 07:21] LABS: CKMB Percent 0.3 % (0.0-4.0); Creatine Kinase MB 2.2 ng/mL (0.5-3.6)
[2018-08-14] MEDS: Divalproex 125 MG DR Tablet PO SCH ×2 (08:36→21:13)
--- NOTE | 2018-08-14 10:57 | P.PNIM ---
Subjective Interval history: f/u; SANDRA/UTI more awake and alert today with no distress. however confused. no fever. Physical Exam Vital signs: Vital Signs 08/13/18 12:00 08/13/18 12:04 08/13/18 16:00 Temperature 99.2 F 97.8 F Pulse Rate 82 92 H Respiratory Rate 18 18 Blood Pressure 139/76 144/86 H Pulse Oximetry 96 97 95 08/13/18 20:00 08/13/18 20:40 08/14/18 00:00 Temperature 97.8 F 97.2 F L Pulse Rate 91 H 113 H Respiratory Rate 18 20 Blood Pressure 97/61 L 145/82 H Pulse Oximetry 93 L 93 L 98 Intake & Output 08/13/18 08/14/18 08/14/18 18:59 06:59 18:59 Intake Total 1500 / 1500 1100 / 1100 0 / 0 Balance 1500 / 1500 1100 / 1100 0 / 0 Weight 79.8 kg Intake: IV 1500 / 1500 1100 / 1100 NS Inj 1,000 ML @ 100 mls/hr IV 500 / 500 .CONT .Q10H JORI Rx#:[id number] 1/2 Normal Saline Inj 1,000 ML 1000 / 1000 1000 / 1000 @ 100 mls/hr IV.CONT .Q10H JORI Rx#:[id number] Rocephin Inj 1,000 MG In NS Inj 100 / 100 100 ML @ 200 mls/hr IV.SIG Q24H JORI Rx#:[id number] Oral 0 / 0 Other: # Voids 2 1 # Incontinent Voids 4 Date of Last Bowel Movement 08/13/18 - Constitutional no acute distress - Routine HEENT Exam Eye: Present: conjunctivae pink (right sunconjuntival hemorrhage.) - Routine Respiratory Exam Present: CTA bilaterally - Routine Cardiovascular Exam Present: RRR - Routine Abdominal Exam Present: soft - Routine Extremities Exam Comments: no pedal edema. - Routine Neurological Exam Present: alert (more aawake today but still confused.) - Urinary Catheter Management Straight Cath placed during this visit: yes Reason for continuing: Not indwelling catheter Insertion date: 08/13/18 Insertion time: 01:51 Results - Labs CBC & Chem 7: 08/14/18 06:25 08/14/18 06:25 Laboratory Results - last 24 hr 08/13/18 08/14/18 08/14/18 12:47 06:25 06:25 WBC 9.4 RBC 3.39 L Hgb 11.2 L Hct 33.2 L MCV 98.0 MCH 33.1 MCHC 33.8 RDW 13.8 Plt Count 139 L MPV 9.6 Neut % (Auto) 83.1 H Lymph % (Auto) 8.4 L [place] % (Auto) 8.0 Eos % (Auto) 0.3 Baso % (Auto) 0.2 Neut # (Auto) 7.8 H Lymph # (Auto) 0.8 L [place] # (Auto) 0.7 Eos # (Auto) 0.0 Baso # (Auto) 0.0 WBC Differential . Differential Comment Auto diff final Sodium 143 Potassium 3.7 Chloride 107 Carbon Dioxide 26.8 Anion Gap 9 BUN 38 H Creatinine 1.22 Estimated GFR 58 L Random Glucose 89 Calcium 8.1 L Total Creatine Kinase 802 H 743 H CK-MB (CK-2) 7.7 H 2.2 CK-MB (CK-2) % 1.0 0.3 Troponin I 0.03 - Imaging Impressions Abdomen/Pelvis CT 08/13/18 00:00 CONCLUSION: 1. Large right ureterovesical junction stone causing moderate severity obstructive uropathy including perinephric edema. There is a smaller stone a couple centimeters above the UVJ. Both of these stones can be seen on the initial hydroelectric machinery mechanic radiograph. 2. Scattered 3 mm or less bilateral nonobstructing renal stones. 3. Large bladder calculus. 4. Enlarged liver with mild fatty infiltration. 5. Moderate stool throughout the colon. Sigmoid colon diverticulosis without diverticulitis. 6. Mild bilateral atelectasis and very small right pleural effusion of the visualized lung bases. Assessment and Plan - Plan Acute metabolic encephalopathy. With history of dementia disturbance -CT head on admission negative for acute findings. Likely secondary to UTI below. Continue home medications. Acute kidney injury; now renal function is improving. Acute UTI right-sided hydronephrosis/ large right ureterovesical stone. Urinalysis with innumerable white blood cells, wbc clumps -continue IV antibiotics and follow the cultures. -continue IV fluid and monitor the renal function. -awaiting urology f/u and recommendations. CK elevation. improving. continue IV fluid and Will follow labs. Hypernatremia. resolved. Hypertension. will monitor right subconjunctival hemorrhage; will monitor. DVT prophylaxis with SCD's for now- pending urology f/u. consulted PT. Discharge Planning: pending urology f/u and PT evaluation.
--- NOTE | 2018-08-14 12:13 | P.PNURO ---
Subjective Patient symptoms today: Appears more coherent today. Denies flank pain. Objective Vital Signs: Vital Signs 08/13/18 16:00 08/13/18 20:00 08/13/18 20:40 Temperature 97.8 F 97.8 F Pulse Rate 92 H 91 H Respiratory Rate 18 18 Blood Pressure 144/86 H 97/61 L Pulse Oximetry 95 93 L 93 L 08/14/18 00:00 Temperature 97.2 F L Pulse Rate 113 H Respiratory Rate 20 Blood Pressure 145/82 H Pulse Oximetry 98 Intake & Output 08/13/18 08/14/18 08/14/18 18:59 06:59 18:59 Intake Total 1500 / 1500 1100 / 1100 0 / 0 Balance 1500 / 1500 1100 / 1100 0 / 0 Weight 79.8 kg Intake: IV 1500 / 1500 1100 / 1100 NS Inj 1,000 ML @ 100 mls/hr IV 500 / 500 .CONT .Q10H JORI Rx#:[id number] 1/2 Normal Saline Inj 1,000 ML 1000 / 1000 1000 / 1000 @ 100 mls/hr IV.CONT .Q10H JORI Rx#:[id number] Rocephin Inj 1,000 MG In NS Inj 100 / 100 100 ML @ 200 mls/hr IV.SIG Q24H JORI Rx#:[id number] Oral 0 / 0 Other: # Voids 2 1 # Incontinent Voids 4 Date of Last Bowel Movement 08/13/18 Result Diagrams: 08/14/18 06:25 08/14/18 06:25 Other Results: Abdomen soft, nondistended, nontender No CVA tenderness Imaging: Impressions Abdomen/Pelvis CT 08/13/18 00:00 CONCLUSION: 1. Large right ureterovesical junction stone causing moderate severity obstructive uropathy including perinephric edema. There is a smaller stone a couple centimeters above the UVJ. Both of these stones can be seen on the initial health program manager radiograph. 2. Scattered 3 mm or less bilateral nonobstructing renal stones. 3. Large bladder calculus. 4. Enlarged liver with mild fatty infiltration. 5. Moderate stool throughout the colon. Sigmoid colon diverticulosis without diverticulitis. 6. Mild bilateral atelectasis and very small right pleural effusion of the visualized lung bases. Medications and IVs: Active Medications Generic Name Dose Route Start Last Admin Trade Name Freq PRN Reason Stop Dose Admin Al Hydroxide/Mg Hydroxide 30 ml 08/13/18 02:41 Milk Of Magnesia Liq PO Q12H PRN Mild Constipation Bisacodyl 10 mg 08/13/18 02:41 Dulcolax Supp RECTAL DAILY PRN SEVERE CONSITIPATION Divalproex Sodium 125 mg 08/13/18 09:00 08/14/18 08:[address] PO 125 mg BID JORI Administration Ceftriaxone Sodium 1,000 mg/ 100 mls @ 200 mls/hr 08/14/18 03:00 08/14/18 03: 04 Sodium Chloride IV.SIG Infused Q24H JORI Infusion Sodium Chloride 1,000 mls @ 100 mls/hr 08/13/18 05:15 08/14/18 02:29 1/2 Normal Saline Inj IV.CONT 100 mls/hr .Q10H JORI Administration Lactulose 30 ml 08/13/18 02:41 Lactulose Liq PO DAILY PRN SEVERE CONSITIPATION Risperidone 0.5 mg 08/13/18 09:00 08/14/18 08:36 Risperdal PO 0.5 mg BID JORI Administration Sennosides 17.2 mg 08/13/18 02:41 Senokot PO Q12H PRN Moderate Constipation Sodium Chloride 2 ml 08/13/18 00:17 Ns Flush IV.FLUSH PRN PRN FLUSH AFTER USING IV ACCESS Trazodone HCl 75 mg 08/13/18 21:00 08/13/18 20:34 Desyrel PO 75 mg HS JORI Administration Assessment and Plan - Assessment (1) Hydronephrosis of right kidney Code(s): N13.30 - Unspecified hydronephrosis Status: Acute (2) Bladder calculi Code(s): N21.0 - Calculus in bladder Status: Acute (3) UTI (urinary tract infection) Code(s): N39.0 - Urinary tract infection, site not specified Status: Acute - Plan Urologic impression: 1. Right hydronephrosis secondary to obstructing right distal ureteral calculi 2. Bladder calculus 3. Urinary tract infection Recommendations: 1. Will place patient on the OR schedule for tomorrow for cystoscopy, right retrograde pyelogram and right ureteral stent placement. 2. N.p.o. after midnight 3. Agree with present antibiotic therapy.
[2018-08-14] MEDS: Haloperidol Inj 5 MG/ML Ampul IM PRN (16:00)
[2018-08-14] MEDS: traZODone 50 MG Tablet PO SCH (21:14)
[2018-08-15] MEDS ORDERED: Chlorhexidine Gluconate 2% 1 Pack (2 Cloths) TOPICAL ONE ×2 (07:45→15:00)
[2018-08-15] MEDS: Divalproex 125 MG DR Tablet PO SCH ×2 (08:07→21:43)
[2018-08-15 08:54] LABS: Calcium 7.9 mg/dL (8.5-10.1); Carbon Dioxide 26.3 meq/L (21.0-32.0); Potassium 3.3 meq/L (3.5-5.1)
--- NOTE | 2018-08-15 09:44 | P.PNIM ---
Subjective Interval history: f/u; nephrolithiasis in no acute distress. no fever. awaiting cystoscopy. Physical Exam Vital signs: Vital Signs 08/14/18 12:00 08/14/18 15:00 08/14/18 15:40 Temperature 98.2 F 97.9 F 97.9 F Pulse Rate 101 H 118 H 118 H Respiratory Rate 18 19 19 Blood Pressure 151/83 H 146/90 H 146/90 H Pulse Oximetry 95 97 97 08/14/18 16:00 08/14/18 16:30 08/14/18 17:30 Temperature 98.0 F 98.5 F 97.9 F Pulse Rate 99 H 101 H 116 H Respiratory Rate 18 16 18 Blood Pressure 145/65 H 154/89 H 143/92 H Pulse Oximetry 95 93 L 08/14/18 18:20 08/14/18 20:00 08/15/18 00:00 Temperature 98.7 F 98.6 F 97.7 F Pulse Rate 130 H 116 H 111 H Respiratory Rate 20 20 Blood Pressure 143/88 H 136/90 134/96 H Pulse Oximetry 95 94 L 92 L Intake & Output 08/14/18 08/15/18 08/15/18 18:59 06:59 18:59 Intake Total 1000 / 1000 1220 / 1220 Balance 1000 / 1000 1220 / 1220 Weight 81.2 kg Intake: IV 1000 / 1000 1100 / 1100 1/2 Normal Saline Inj 1,000 ML 1000 / 1000 1000 / 1000 @ 100 mls/hr IV.CONT .Q10H JORI Rx#:[id number] Rocephin Inj 1,000 MG In NS Inj 100 / 100 100 ML @ 200 mls/hr IV.SIG Q24H JORI Rx#:[id number] Oral 0 / 0 120 / 120 Other: # Voids 1 # Incontinent Voids 2 # Urine Diapers 4 # Bowel Movements 1 - Constitutional no acute distress - Routine Respiratory Exam Present: CTA bilaterally - Routine Cardiovascular Exam Present: RRR - Routine Abdominal Exam Present: soft - Routine Extremities Exam Comments: no pedal edema. - Urinary Catheter Management Straight Cath placed during this visit: yes Reason for continuing: Not indwelling catheter Insertion date: 08/13/18 Insertion time: 01:51 Results - Labs CBC & Chem 7: 08/14/18 06:25 08/15/18 08:05 Laboratory Results - last 24 hr 08/15/18 08:05 Sodium 144 Potassium 3.3 L Chloride 108 H Carbon Dioxide 26.3 Anion Gap 10 BUN 33 H Creatinine 1.12 Estimated GFR 64 L Random Glucose 95 Calcium 7.9 L Microbiology 08/13/18 01:13 EST Catheterized Urine Urine Culture - Final Viridans streptococcus grp 08/13/18 02:55 Blood - Peripheral Aerobic Blood Culture - Preliminary No growth in 1 day 08/13/18 02:55 Blood - Peripheral Anaerobic Blood Culture - Preliminary No growth in 1 day 08/13/18 02:45 Blood - Peripheral Aerobic Blood Culture - Preliminary No growth in 1 day 08/13/18 02:45 Blood - Peripheral Anaerobic Blood Culture - Preliminary No growth in 1 day Assessment and Plan - Plan Acute metabolic encephalopathy. With history of dementia disturbance -CT head on admission negative for acute findings. Likely secondary to UTI below. Continue home medications. Acute kidney injury; now renal function is improving. Acute UTI right-sided hydronephrosis/ large right ureterovesical stone. Urinalysis with innumerable white blood cells, wbc clumps -continue IV antibiotics and follow the cultures. -continue IV fluid and monitor the renal function. -for cystoscopy and ureteral stent placement today. CK elevation. improving. continue IV fluid and Will follow labs. Hypernatremia. resolved. Hypertension. will monitor right subconjunctival hemorrhage; will monitor. DVT prophylaxis with SCD's for now- consulted PT. Discharge Planning: dc to SNF- likely tomorrow if stable.
[2018-08-15] MEDS ORDERED: Metoprolol Tartrate 25 MG Tablet PO ONE (15:00)
[2018-08-15] MEDS ORDERED: Sodium Chlor 0.9% Inj 500 ML IV.SIG SCH (15:00)
[2018-08-15] MEDS ORDERED: Lidocaine PF 1% Inj 5 ML Syringe OTHER ONE (15:36)
[2018-08-15] MEDS ORDERED: Succinylcholine Inj 100 MG/5 ML Syringe IV.PUSH ONE (15:36)
[2018-08-15] MEDS ORDERED: Iohexol Inj 350 MG/ML 100 ML Bottle (for RAD Diag) IVCONTRAST ONE (16:16)
--- NOTE | 2018-08-15 16:30 | P.OP ---
- Preoperative Diagnosis (1) Hydronephrosis of right kidney (2) Ureteral calculus, right (3) Bladder calculi - Postoperative Diagnosis (1) Hydronephrosis of right kidney (2) Bladder calculi (3) Ureteral calculus, right Date of procedure: 08/15/18 Procedure: Cystoscopy, right retrograde pyelogram and right ureteral stent placement Implants: 6 [place] 26 cm [place] ureteral stent Anesthesia: GETA Surgeon: Daniel Hinton MD Estimated blood loss (mL): 0 Pathology: none sent Operation and Findings: Indication for procedures: Case of a 73-year-old gentleman admitted with right hydronephrosis secondary to multiple right distal ureteral calculi who presents now for right ureteral stent placement. Operative procedures in detail: Patient was brought to the operating room suite and placed supine on the cystoscopy table. He was then placed under general anesthesia. He was then repositioned in the dorsolithotomy position and prepped and draped in normal sterile fashion. After an appropriate timeout was undertaken I proceeded with cystoscopic evaluation utilizing the rigid cystoscope with the 20 [place] sheath and the 30 degree lens. The urethra was patent without stricture formation and the prostatic urethra demonstrated lateral lobe enlargement. Further passive cystoscope within urinary bladder revealed both right and left ureteral orifices to be in correct anatomic position. There was clear drainage on the left and none noted on the right. There were 2 approximately 1 cm bladder stones noted. I proceeded to perform a right retrograde pyelogram utilizing a 6 [place] open-ended ureteral catheter. There were 2 obstructing right distal ureteral stones noted. I then placed a sensor 0.035 wire up the patient's right ureter all the way to the right renal pelvis and the open-ended catheter was exchanged for a [place] 6 [place] 26 cm double-J stent. The stent was placed on the both cystoscopic and fluoroscopic guidance without difficulty and once the stent was in proper position the trailing string was removed. The bladder was drained of all irrigant fluid and cystoscope was withdrawn. The patient tolerated the procedures without complications and was transferred to the PACU in satisfactory condition.
[2018-08-15] MEDS: Sodium Chloride 0.45 % Inj 1,000 ML IV.CONT SCH ×2 (21:36→21:37)
[2018-08-15] MEDS: traZODone 50 MG Tablet PO SCH (21:43)
[2018-08-16] MEDS: Sodium Chloride 0.45 % Inj 1,000 ML IV.CONT SCH ×3 (06:56→23:49)
[2018-08-16] MEDS: Divalproex 125 MG DR Tablet PO SCH ×2 (09:05→20:14)
--- NOTE | 2018-08-16 12:05 | P.PNIM ---
Subjective Interval history: f/u; nephrolithiasis in no acute distress. awake. looks comfortable. no fever. Physical Exam Vital signs: Vital Signs 08/15/18 16:00 08/15/18 16:28 08/15/18 16:45 Temperature 97.8 F 98.5 F Pulse Rate 88 100 H 98 H Respiratory Rate 16 16 17 Blood Pressure 153/98 H 104/67 105/68 Pulse Oximetry 95 96 97 08/15/18 17:00 08/15/18 17:15 08/15/18 20:00 Temperature 98.5 F 97.7 F Pulse Rate 92 H 98 H 120 H Respiratory Rate 17 17 20 Blood Pressure 121/78 131/93 H 154/109 H Pulse Oximetry 96 96 96 08/16/18 00:00 08/16/18 04:00 08/16/18 08:00 Temperature 97.8 F 97.5 F L Pulse Rate 95 H 94 H 99 H Respiratory Rate 20 20 18 Blood Pressure 162/102 H 171/104 H 152/81 H Pulse Oximetry 96 98 Intake & Output 08/15/18 08/16/18 08/16/18 18:59 06:59 18:59 Intake Total 800 / 800 100 / 100 Balance 800 / 800 100 / 100 Weight 78.7 kg Intake: IV 100 / 100 Rocephin Inj 1,000 MG In NS Inj 100 / 100 100 ML @ 200 mls/hr IV.SIG Q24H JORI Rx#:[id number] Anesthesia Amount 800 / 800 Other: # Incontinent Voids 5 Date of Last Bowel Movement 08/13/18 - Constitutional no acute distress - Routine Respiratory Exam Present: CTA bilaterally - Routine Cardiovascular Exam Present: RRR - Routine Abdominal Exam Present: soft - Routine Extremities Exam Comments: no pedal edema. - Routine Neurological Exam Present: alert - Urinary Catheter Management Straight Cath placed during this visit: yes Reason for continuing: Not indwelling catheter Insertion date: 08/13/18 Insertion time: 01:51 Results - Labs CBC & Chem 7: 08/14/18 06:25 08/15/18 08:05 Microbiology 08/13/18 02:55 Blood - Peripheral Aerobic Blood Culture - Preliminary No growth in 3 days 08/13/18 02:55 Blood - Peripheral Anaerobic Blood Culture - Preliminary No growth in 3 days 08/13/18 02:45 Blood - Peripheral Aerobic Blood Culture - Preliminary No growth in 3 days 08/13/18 02:45 Blood - Peripheral Anaerobic Blood Culture - Preliminary No growth in 3 days 08/13/18 01:13 EST Catheterized Urine Urine Culture - Final Viridans streptococcus grp - Procedures Cystoscopy, right retrograde pyelogram and right ureteral stent placement Assessment and Plan - Plan Acute metabolic encephalopathy- now seems to be at his baseline. With history of dementia disturbance -CT head on admission negative for acute findings. Likely secondary to UTI below. Continue home medications. Acute kidney injury; now renal function is improving. Acute UTI right-sided hydronephrosis/ large right ureterovesical stone. - s/p Cystoscopy, right retrograde pyelogram and right ureteral stent placement Urinalysis with innumerable white blood cells, wbc clumps -received IV antibiotics. CK elevation. improving. Hypernatremia. resolved. Hypertension. will monitor right subconjunctival hemorrhage; will monitor. DVT prophylaxis with SCD's for now- consulted PT. Discharge Planning: dc to [facility] within the next 24 hrs. f/u; pcp and urology. see med list.
--- NOTE | 2018-08-16 12:07 | P.DS ---
Date of admission: 08/13/18 02:44 Primary care physician: No Primary Care Physician Brief History from admission: 73-year-old male with a history of Alzheimer's dementia, hypertension who was found outside the Courtyard at his dementia unit, with dirt found under his nails and with a right subconjunctival hemorrhage. History is obtained from chart review and discussion with ER doctor. Patient denies any pain, however does not elicit any other useful history. Patient acting bizarre and not at baseline. DS: Summary Hospital Course: Acute metabolic encephalopathy- now seems to be at his baseline. With history of dementia disturbance -CT head on admission negative for acute findings. Likely secondary to UTI below. Continue home medications. Acute kidney injury; now renal function is improving. Acute UTI right-sided hydronephrosis/ large right ureterovesical stone. - s/p Cystoscopy, right retrograde pyelogram and right ureteral stent placement Urinalysis with innumerable white blood cells, wbc clumps -received IV antibiotics. CK elevation. improving. Hypernatremia. resolved. Hypertension. will monitor right subconjunctival hemorrhage; will monitor. DVT prophylaxis with SCD's for now- - Time Spent with Patient Total time spent providing and/or coordinating discharge services: Less than 30 minutes - Quality: VTE Deep Vein Thrombosis/Pulmonary Embolism Present on Admission: No Exam Vital signs: Vital Signs 08/15/18 16:00 08/15/18 16:28 08/15/18 16:45 Temperature 97.8 F 98.5 F Pulse Rate 88 100 H 98 H Respiratory Rate 16 16 17 Blood Pressure 153/98 H 104/67 105/68 Pulse Oximetry 95 96 97 08/15/18 17:00 08/15/18 17:15 08/15/18 20:00 Temperature 98.5 F 97.7 F Pulse Rate 92 H 98 H 120 H Respiratory Rate 17 17 20 Blood Pressure 121/78 131/93 H 154/109 H Pulse Oximetry 96 96 96 08/16/18 00:00 08/16/18 04:00 08/16/18 08:00 Temperature 97.8 F 97.5 F L Pulse Rate 95 H 94 H 99 H Respiratory Rate 20 20 18 Blood Pressure 162/102 H 171/104 H 152/81 H Pulse Oximetry 96 98 Intake & Output 08/15/18 08/16/18 08/16/18 18:59 06:59 18:59 Intake Total 800 / 800 100 / 100 Balance 800 / 800 100 / 100 Weight 78.7 kg Intake: IV 100 / 100 Rocephin Inj 1,000 MG In NS Inj 100 / 100 100 ML @ 200 mls/hr IV.SIG Q24H JORI Rx#:[id number] Anesthesia Amount 800 / 800 Other: # Incontinent Voids 5 Date of Last Bowel Movement 08/13/18 - Constitutional no acute distress - Routine Respiratory Exam Present: CTA bilaterally - Routine Cardiovascular Exam Present: RRR - Routine Abdominal Exam Present: soft - Routine Extremities Exam Comments: no pedal edema. - Routine Neurological Exam Present: alert Results Procedures completed during hospitalization: Cystoscopy, right retrograde pyelogram and right ureteral stent placement Labs on day of discharge: Preliminary micro results at discharge 08/13/18 02:55 Aerobic Blood Culture - Preliminary Blood - Peripheral No growth in 3 days Anaerobic Blood Culture - Preliminary No growth in 3 days 08/13/18 02:45 Aerobic Blood Culture - Preliminary Blood - Peripheral No growth in 3 days Anaerobic Blood Culture - Preliminary No growth in 3 days - Impressions ITS Impressions Abdomen/Bladder Ultrasound 08/13/18 00:00 CONCLUSION: 1. Small bladder stones. 2. Moderate right hydronephrosis Abdomen/Pelvis CT 08/13/18 00:00 CONCLUSION: 1. Large right ureterovesical junction stone causing moderate severity obstructive uropathy including perinephric edema. There is a smaller stone a couple centimeters above the UVJ. Both of these stones can be seen on the initial web project manager radiograph. 2. Scattered 3 mm or less bilateral nonobstructing renal stones. 3. Large bladder calculus. 4. Enlarged liver with mild fatty infiltration. 5. Moderate stool throughout the colon. Sigmoid colon diverticulosis without diverticulitis. 6. Mild bilateral atelectasis and very small right pleural effusion of the visualized lung bases. Chest X-Ray 08/13/18 00:17 CONCLUSION: No acute disease Head CT 08/13/18 00:17 CONCLUSION: Negative CT Head non contrast. . Discharge Plan - Discharge Disposition Patient Disposition: [facility] - Discharge Condition Condition: Fair - Physicians Team Primary Care Provider: Primary Care Lalitha Rodriguez Attending Provider: Alessandra Todd Other Providers: Daniel Hinton MD
[2018-08-16] MEDS: Metoprolol Tartrate 25 MG Tablet PO SCH ×2 (14:06→20:15)
[2018-08-16] MEDS: traZODone 50 MG Tablet PO SCH (20:14)
[2018-08-16] MEDS: Haloperidol Inj 5 MG/ML Ampul IM PRN (20:15)
[2018-08-17 08:36] VITALS: RESP 19
--- NOTE | 2018-08-17 10:45 | P.PNIM ---
Subjective Interval history: f/u; nephrolithiasis in no acute distress. no fever. Physical Exam Vital signs: Vital Signs 08/16/18 12:00 08/16/18 16:00 08/16/18 20:00 Temperature 97.8 F 98.0 F 97.9 F Pulse Rate 86 98 H 93 H Respiratory Rate 18 18 18 Blood Pressure 173/95 H 134/80 164/95 H Pulse Oximetry 95 95 96 08/17/18 00:00 08/17/18 04:00 08/17/18 08:00 Temperature 97.6 F 97.5 F L 97.5 F L Pulse Rate 84 84 79 Respiratory Rate 19 18 19 Blood Pressure 154/103 H 167/108 H 150/93 H Pulse Oximetry 96 97 95 Intake & Output 08/16/18 08/17/18 08/17/18 18:59 06:59 18:59 Intake Total 720 / 720 1340 / 1340 Balance 720 / 720 1340 / 1340 Weight 77.9 kg Intake: IV 1100 / 1100 1/2 Normal Saline Inj 1,000 ML 1000 / 1000 @ 100 mls/hr IV.CONT .Q10H [facility] Rx#:[id number] Rocephin Inj 1,000 MG In NS Inj 100 / 100 100 ML @ 200 mls/hr IV.SIG Q24H [facility] Rx#:[id number] Oral 720 / 720 240 / 240 Other: # Voids 5 # Incontinent Voids 3 1 Date of Last Bowel Movement 08/13/18 # Bowel Movements 1 - Constitutional no acute distress - Routine Respiratory Exam Present: CTA bilaterally - Routine Cardiovascular Exam Present: RRR - Routine Abdominal Exam Present: soft - Routine Extremities Exam Comments: no pedal edema - Routine Neurological Exam demented. - Urinary Catheter Management Straight Cath placed during this visit: yes Reason for continuing: Not indwelling catheter Insertion date: 08/13/18 Insertion time: 01:51 Results - Labs CBC & Chem 7: 08/14/18 06:25 08/15/18 08:05 Microbiology 08/13/18 02:55 Blood - Peripheral Aerobic Blood Culture - Preliminary No growth in 3 days 08/13/18 02:55 Blood - Peripheral Anaerobic Blood Culture - Preliminary No growth in 3 days 08/13/18 02:45 Blood - Peripheral Aerobic Blood Culture - Preliminary No growth in 3 days 08/13/18 02:45 Blood - Peripheral Anaerobic Blood Culture - Preliminary No growth in 3 days - Procedures Cystoscopy, right retrograde pyelogram and right ureteral stent placement Assessment and Plan - Plan Acute metabolic encephalopathy- now seems to be at his baseline. With history of dementia disturbance -CT head on admission negative for acute findings. Likely secondary to UTI below. Continue home medications. Acute kidney injury; now renal function is improving. Acute UTI right-sided hydronephrosis/ large right ureterovesical stone. - s/p Cystoscopy, right retrograde pyelogram and right ureteral stent placement Urinalysis with innumerable white blood cells, wbc clumps -received IV antibiotics. CK elevation. improving. Hypernatremia. resolved. Hypertension. will monitor right subconjunctival hemorrhage; will monitor. DVT prophylaxis with SCD's for now- consulted PT. Discharge Planning: resides at [facility]- d/w the and SNF was offered but the wants him to go back to [facility]. dc to [facility] today. f/u; pcp and urology. see med list.
[2018-08-17] MEDS: Metoprolol Tartrate 25 MG Tablet PO SCH (11:01)
[2018-08-17] MEDS: Divalproex 125 MG DR Tablet PO SCH (11:01)
[2018-08-17 11:46] VITALS: BP 164/95; PULSE 88; TEMP 97.3; O2SAT 96
== END 2018-08-17 14:21 ==
LOC: NEPE 00:09 → NEDA 02:44 → N07 04:10
PROVIDERS: ADMIT Internal Medicine; ATTEND Internal Medicine